=== PATIENT | male | born 1960 | race Caucasian/White ===

== ENCOUNTER 2019-08-01 | Emergency (ER) | payer BC | END 2019-08-01 22:29 | disposition home or self-care (01) | CPT/HCPCS: 70450; 72125; 72128; 72131; 99283 ==

== ENCOUNTER 2023-01-30 06:59 | Day surgery (SDC) | payer OTHER ==
--- NOTE | 2023-01-27 11:55 | RAD REPORT ---
EXAM DESCRIPTION: RAD - Chest Pa And Lat (2 Views) - 01/27/2023 11:34 am CLINICAL HISTORY: PREPROCEDURE EXAM. Hypertension COMPARISON: Chest Pa And Lat (2 Views) dated 07/21/2021; CHEST PA AND LAT 2 VIEW dated 01/13/2009 TECHNIQUE: PA and lateral views of the chest were obtained. FINDINGS: The lungs are clear. Mild hyperinflation, stable. Heart size is normal and central vascula ture is within normal limits. No pleural effusion or pneumothorax seen. No acute bony finding noted. IMPRESSION: No acute cardiopulmonary process.
--- NOTE | 2023-01-27 12:20 | EKG ---
Test Date: 2023-01-27 Test Time: 11:18:36 Child Care Director: MIKKI MEASUREMENT RESULTS: Intervals: Rate: 64 IA: 162 QRSD: 94 QT: 448 QTc: 462 Ada: P: 63 IA: 162 QRS: -36 T: 25 INTERPRETIVE STATEMENTS: Normal sinus rhythm Left axis deviation Abnormal ECG Compared to ECG 01/13/2009 14:32:09 Left-axis deviation now present Electronically Signed On 01-27-23 12:19:30 CDT by Philip Bower
[2023-01-27 12:33] LABS: Absolute Lymphocytes (CBC) 1.1 K/uL (0.7-4.9); Hematocrit 34.7 % (39.6-49.0); Lymphocytes % 15.9 % (15.3-44.8); MCV 87.3 fL (80-100); MPV 8.8 fL (7.6-11.3); Platelets 213 thou/uL (152-406); RBC Red Blood Cell Count 3.97 M/uL (4.33-5.43)
[2023-01-27 12:47] LABS: Potassium 2.9 mEq/L (3.5-5.1)
[2023-01-30] MEDS ORDERED: NA CHLORIDE 0.9% 1,000 ML ONE (07:33)
[2023-01-30] MEDS ORDERED: ALBUTEROL 2.5 MG/3 ML NEB SOL ONE ×2 (07:46→10:12)
[2023-01-30] MEDS: CEFAZOLIN SODIUM 1 GM/VIAL ONE ×2 (08:08→08:25)
[2023-01-30] MEDS ORDERED: FENTANYL CITR 100 MCG/2 ML ONE (08:18)
[2023-01-30] MEDS ORDERED: MIDAZOLAM HCL 2 MG/2 ML INJ ONE (08:19)
[2023-01-30] MEDS ORDERED: propofoL 200 MG/20 ML VIAL IV ONE (08:19)
[2023-01-30] MEDS ORDERED: LIDOCAINE 2% MPF 5 ML VIAL ONE (08:19)
[2023-01-30] MEDS ORDERED: ONDANSETRON 4 MG/2 ML VIAL ONE (08:24)
[2023-01-30] MEDS ORDERED: SUCCINYLCHOLINE 20 MG/ML (10 ML) IV ONE (08:44)
[2023-01-30] MEDS ORDERED: SILVER SULFADIAZINE 1% 25 GM TOP ONE (09:25)
[2023-01-30] MEDS ORDERED: HYDROMORPHONE HCL 1 MG/ML INJ ONE (10:18)
[2023-01-30 10:30] VITALS: O2SAT 93
--- NOTE | 2023-01-30 10:34 | P.BOP ---
Preoperative diagnosis: Large perineal ulcerated masses [id number] Postoperative diagnosis: same Primary procedure: Wide excision large ulcerated skin masses Estimated blood loss: <10cc Specimen: masses Anesthesia: General Complications: None Drain(s): Other (silvadene with gauze) Transferred to: Recovery Room Condition: Good
[2023-01-30 11:20] VITALS: BP 149/78; TEMP 97.6
--- NOTE | 2023-02-01 19:35 | DS ---
Date of Discharge: 01/30/2023 Diagnosis: Large perineal ulcerated masses. Procedure: Wide excision of large ulcerated skin masses. Disposition: Home. Plan: [facility] for [facility] and dressing guera CHENEY Voice ID: [id number] Report ID: [id number]
--- NOTE | 2023-02-01 19:51 | OP ---
Surgeon: Colyb Garrison MD Preoperative Diagnosis: Large perineal ulcerated mass altogether is about 25 x 20 cm. Postoperative Diagnosis: Large perineal ulcerated mass altogether is about 25 x 20 cm. Procedure: Wide excision of large ulcerated skin mass about 25 x 20 cm total fungating mass. Estimated Blood Loss: Less than 10 mL. Specimen: Fungating mass. Anesthesia: General plus local. Findings: The patient had this fungating lesion, ulcerated, large, multiple areas including perineum , both thighs, even part of the scrotum. When you put all this together and satellite lesions ____ area is about 25 x 20 cm. Complications: None. Packing: Gauze with Silvadene. The area was left to close by secondary intent. Indication: This is a case of a 62-year-old patient with a large mass on the perineal area, involved part of the scrotal skin and the patient wants that excised. This is draining, discomfor t, may be a large gigantic condyloma area. He understands the risks of excision, which include, but not limited to, infection, bleeding, damage to adjacent structures, anesthesia complications, [place], and even . Proper precaution was done in the OR in case this is a condyloma. The patient was prep ped. Description Of Procedure: The patient was brought to the operating room, placed in supine position. Anesthesia was done without complication. The patient was placed in lithotomy position with proper protection. Proper precautions were also done by the OR in case once again if it is a virus. Wide e xcision of this area was done. There are large bases, different locations, multiple satellites. We were trying to remove the bulkiness of this. There were some small areas he might have to do in anot her time due to the large amount of the wounds open. All of them were excised all the way down to the subcutaneous tissue. The area was irrigated. These are too large to be closed, so we c overed the area with Silvadene and gauze in that region. The patient tolerated the procedure well. The patient was sent to Recovery in stable condition. [place] Voice ID: [id number] Report ID: [id number]
== END 2023-01-30 11:15 | disposition home or self-care (01) ==
LOC: OR 06:59
PROVIDERS: ATTEND Surgery
PROC: 0HBAXZZ Excision of Inguinal Skin, External Approach (ICD-10-PCS; principal; 2023-01-30 08:30)
DX: A63.0 Anogenital (venereal) warts (principal)
CPT/HCPCS: 93005; 85025; 80048; 36415; 82947 ×2; 88305; 71046; 11426; J2704; J7613 ×2; J2001; J2250; J3010; J1170; J2405; J7030; J0690

== ENCOUNTER 2023-02-06 00:06 | Emergency (ER) | payer OTHER ==
--- OUTSIDE RECORDS SUMMARY | 2023-02-06 00:11 | XMS REPORT | Continuity of Care Document ---
:1960 Author Organization [facility] t Address [address] [facility] [place] [address] Care Team Providers Name Role Phone Sterling Harper Primary Care Physician Tico Viera Attending Clinician Unavailable , [facility] Bed Attending Clinician Unavailable Lianna Moy MD Attending Clinician LIANNA MOY Attending Clinician Unavailable LIANNA MOY Attending Clinician Unavailable Doctor Unassigned, [place] Attending Clinician Unavailable Juan Harper Attending Clinician Unavailable Russ Cool Attending Clinician Unavailable TICO VIERA Attending Clinician Unavailable LAXMI CLINE Attending Clinician Unavailable Jong Mac RN Attending Clinician Unavailable SMOOTH PARKS Attending Clinician Unavailable Erma Cruz Attending Clinician Smooth Parks MD Attending Clinician Radiology Attending Clinician Unavailable Tico Viera Admitting Clinician Unavailable Russ Cool Admitting Clinician Unavailable TICO VIERA Admitting Clinician Unavailable Jv Garcia Admitting Clinician Unavailable LAXMI CLINE Admitting Clinician Unavailable SMOOTH PARKS Admitting Clinician Unavailable Smooth Parks MD Admitting Clinician Payers Payer Name Policy Type Policy Number Effective Date Expiration Date S hollie CRESPO FROM [id number] 2019 [facility] 00:00:00 Problems Condition Condition Condition Status Onset Resolution Last Treating Co mments Source Name Details Category Date Date Treatment Clinician Date Coronary Coronary Disease Active Unive rs artery artery 09-22 ity of disease disease 00:00: [place] involving involving 00 Medi simba [place] Branch coronary coronary artery of artery of [place] heart with heart with angina angina pectoris pectoris Acute on Acute on Disease Active Unive rs chronic chronic 09-22 ity of diastolic diastolic 00:00: [place] congestive congestive 00 Me dical heart heart Branch failure failure Essential Essential Disease Active Uni vers hypertensi hypertensi 09-22 it y of on on 00:00: [place] 00 Medical Branch Other Other Disease Active Univers hyperlipid hyperlipid 09-22 it y of emia emia 00:00: [place] [facility] Type 2 Type 2 Disease Active Univers diabetes diabetes 09-22 ity of mellitus mellitus 00:00: [place] without without 00 Medical complicati complicati Br anch on, on, without without long-term long-term current current use of use of insulin insulin DUSTIN DUSTIN Disease Active Univers (obstructi (obstructi 09-22 it y of ve sleep ve sleep 00:00: [place] apnea) apnea) 00 Medical Branch Acute Acute Disease Active Univers kidney kidney 3 ity of injury injury 00:00: [place] (CLAIRE) with (CLAIRE) with 00 Me dical acute acute Branch tubular tubular necrosis necrosis (ATN) (ATN) Hyperglyce Hyperglyce Disease Active U nivers isadora isadora 2-29 ity of 00:00: [place] [facility] Chest pain Chest pain Disease Active 2018- U nivers 9-10 ity of 00:00: [place] 00 Medical Branch Other Other Disease Active 2016-04 Univers chest pain chest pain 0-08 it y of 00:00: [place] 00 Medical Branch Unstable Unstable Disease Active 2016-04 Unive rs angina angina 0-07 ity of 00:00: [place] [facility] Obesity Obesity Disease Active 2016-04 Univers (BMI (BMI 0-07 ity of 30-39.9) 30-39.9) 00:00: [place] [facility] Knee pain, Knee pain, Disease Active U nivers left left 5-10 ity of 00:00: [place] [facility] Knee pain, Knee pain, Disease Active U nivers left left 5-10 ity of 00:00: [address] Allergies, Adverse Reactions, Alerts Allergy Allergy Status Severity Reaction(s) Onset Inactive Treating Comm ents Source Name Type Date Date Clinician No Known DA Active U [facility] Allergie 9-16 [place] 00:00: [address] No Known DA Active U 2016-04 [facility] Allergie 0-14 [place] 00:00: [address] NO KNOWN Drug Active Univers ALLERGIE Class ity of S [facility] Social History Social Habit Start Date Stop Date Quantity Comments Source History of tobacco Cigarette Smoker University of use [facility] Exposure to 2022-08-13 2022-08-23 Not sure [facility] SARS-CoV-2 (event) 00:00:00 02:23:00 [facility] Alcohol intake 2019-06-22 2019-06-22 Current University of 00:00:00 00:00:00 non-drinker of [facility] alcohol Branch (finding) Tobacco use and 2017-01-28 2017-01-28 Smokeless Universit y of exposure 00:00:00 00:00:00 tobacco non-user [facility] Branch Cigarettes smoked 2017-01-28 2017-01-28 Univers ity of current (pack per 00:00:00 00:00:00 [place] ) - Reported Branch Cigarette 2017-01-28 2017-01-28 University of pack-years 00:00:00 00:00:00 [facility] Alcohol Comment 2009-04-07 2009-04-07 quit drinking Univer sity of 00:00:00 00:00:00 [facility] Sex Ass[birth year] At [birth year] Universit y of 00:00:00 00:00:00 [facility] Smoking Status Start Date Stop Date Source Smokes tobacco daily 2017-01-28 00:00:00 [facility] ity of [facility] Medications Ordered Filled Start Stop Current Ordering Indication Dosage Frequency Signature Comments Components Source Medication Medication Date Date Medication? Clinician (SIG) Name Name aspirin 81 Yes [id number] 81mg Take 1 U nivers mg chewable 6-02 tablet by ity of tablet 00:00: mouth [place] 00 daily. Medical Branch aspirin 81 2020-0 Yes [id number] 81mg Take 1 U nivers mg chewable 6-02 tablet by ity of tablet 00:00: mouth [place] 00 daily. Medical Branch aspirin 81 2020-0 Yes [id number] 81mg Take 1 U nivers mg chewable 6-02 tablet by ity of tablet 00:00: mouth [place] 00 daily. Medical Branch tamsulosin 2020-0 Yes .4mg Take 0.4 Uni vers 0.4 mg 24 6-01 mg by ity of hr capsule 14:28: mouth [place] 29 daily. Medical Branch metFORMIN 2020-0 Yes 500mg Take 500 Uni vers 500 mg 6-01 mg by ity of tablet 14:28: mouth 2 [place] 29 (two) Medical times Branch daily with meals. insulin 2020-0 Yes inject Univers aspart 6-01 under the ity of prot/insuln 14:28: skin 2 [place] asp 29 (two) Medical (NOVOLOG times Branch MIX daily with 70-30FLEXPE meals. N U-100 SC) tamsulosin 2020-0 Yes .4mg Take 0.4 Uni vers 0.4 mg 24 6-01 mg by ity of hr capsule 14:28: mouth [place] 29 daily. Medical Branch metFORMIN 2020-0 Yes 500mg Take 500 Uni vers 500 mg 6-01 mg by ity of tablet 14:28: mouth 2 [place] 29 (two) Medical times Branch daily with meals. insulin 2020-0 Yes inject Univers aspart 6-01 under the ity of prot/insuln 14:28: skin 2 [place] asp 29 (two) Medical (NOVOLOG times Branch MIX daily with 70-30FLEXPE meals. N U-100 SC) tamsulosin 2020-0 Yes .4mg Take 0.4 Uni vers 0.4 mg 24 6-01 mg by ity of hr capsule 14:28: mouth [place] 29 daily. Medical Branch metFORMIN 2020-0 Yes 500mg Take 500 Uni vers 500 mg 6-01 mg by ity of tablet 14:28: mouth 2 [place] 29 (two) Medical times Branch daily with meals. insulin 2020-0 Yes inject Univers aspart 6-01 under the ity of prot/insuln 14:28: skin 2 [place] asp 29 (two) Medical (NOVOLOG times Branch MIX daily with 70-30FLEXPE meals. N U-100 SC) benazepril- 2020-0 Yes [id number] 1{tbl} Take 1 Univers hydrochlort 6-01 tablet by ity of hiazide 00:00: mouth [place] 20-25 mg 00 daily. Medical per tablet Branch carvediloL 2020-0 Yes [id number] 12.5mg Take 1 Univers 12.5 mg 6-01 tablet by ity of tablet 00:00: mouth 2 [place] 00 (two) Medical times Branch daily. isosorbide 2020-0 Yes [id number] 60mg Take 1 U nivers mononitrate 6-01 tablet by ity of 60 mg 24 hr 00:00: mouth [place] tablet 00 daily. Medical Branch benazepril- 2020-0 Yes [id number] 1{tbl} Take 1 Univers hydrochlort 6-01 tablet by ity of hiazide 00:00: mouth [place] 20-25 mg 00 daily. Medical per tablet Branch carvediloL 2020-0 Yes [id number] 12.5mg Take 1 Univers 12.5 mg 6-01 tablet by ity of tablet 00:00: mouth 2 [place] 00 (two) Medical times Branch daily. isosorbide 2020-0 Yes [id number] 60mg Take 1 U nivers mononitrate 6-01 tablet by ity of 60 mg 24 hr 00:00: mouth [place] tablet 00 daily. Medical Branch benazepril- 2020-0 Yes [id number] 1{tbl} Take 1 Univers hydrochlort 6-01 tablet by ity of hiazide 00:00: mouth [place] 20-25 mg 00 daily. Medical per tablet Branch carvediloL 2020-0 Yes [id number] 12.5mg Take 1 Univers 12.5 mg 6-01 tablet by ity of tablet 00:00: mouth 2 [place] 00 (two) Medical times Branch daily. isosorbide 2020-0 Yes [id number] 60mg Take 1 U nivers mononitrate 6-01 tablet by ity of 60 mg 24 hr 00:00: mouth [place] tablet 00 daily. Medical Branch tamsulosin 2020-0 Yes .4mg Take 0.4 Uni vers 0.4 mg 24 3-02 mg by ity of hr capsule 18:15: mouth [place] 44 daily. Medical Branch tamsulosin 2020-0 Yes .4mg Take 0.4 Uni vers 0.4 mg 24 3-02 mg by ity of hr capsule 18:15: mouth [place] 44 daily. Medical Branch metFORMIN 2020-0 Yes 500mg 500 mg, Univ ers (GLUCOPHAGE 3- Oral, BID ity of ) tablet 14:00: MEALS, [place] 500 mg 00 First dose Medical on Mon Branch 06/24/19 at 0800, Until Discontinu ed, Routine glyBURIDE 5 2020-0 2020- No [id number] 5mg Take 1 Univers mg tablet 06-23- tablet by ity of 00:00: 04:59 mouth 2 [place] 00 :00 (two) Medical times Branch daily with meals for 30 days. metFORMIN 2020-0 2020- No [id number] 500mg Take 1 Univers 500 mg 06-23- tablet by ity of tablet 00:00: 04:59 mouth 2 [place] 00 :00 (two) Medical times [place] daily with meals for 30 days. glyBURIDE 5 2020-0 2020- No [id number] 5mg Take 1 Univers mg tablet 06-23- tablet by ity of 00:00: 04:59 mouth 2 [place] 00 :00 (two) Medical times [place] daily with meals for 30 days. metFORMIN 2020-0 2020- No [id number] 500mg Take 1 Univers 500 mg 06-23- tablet by ity of tablet 00:00: 04:59 mouth 2 [place] 00 :00 (two) Medical times [place] daily with meals for 30 days. NaCl 0.9% 2020-0 Yes 1000mL at 75 Unive rs (NS) IV 3-01 mL/hr, IV ity of infusion 23:45: Infusion, [place] 1,000 mL 00 CONTINUOUS Medic al , Starting Branch [place] 06/23/19 at 1745, Until Discontinu ed, Routine clopidogreL 2020-0 Yes 75mg 75 mg, Univ ers (PLAVIX) 3- Oral, ity of tablet 75 15:00: DAILY, [place] mg 00 First dose Medical on [facility] 06/23/19 at 0900, Until Discontinu ed, Routine glyBURIDE 2020-0 Yes 5mg 5 mg, Univers (DIABETA) 3- Oral, BID ity o f tablet 5 mg 14:30: MEALS, [place] 00 First dose Medical on [facility] 06/23/19 at 0830, Until Discontinu ed, Routine gabapentin 2020-0 Yes 600mg 600 mg, Uni vers (NEURONTIN) 06-22 Oral, TID, it y of tablet 600 14:00: First dose [place] mg 00 on [facility] 06/23/19 at Branch 0800, Until Discontinu ed, Routine carvediloL 2020-0 Yes 6.25mg 6.25 mg, U stephanie (COREG) 06-22 Oral, BID, ity of tablet 6.25 14:00: First dose [place] mg 00 on [facility] 06/23/19 at Branch 0800, Until Discontinu ed, Routine cetirizine 2020-0 2020- No 5mg 5 mg, Unive rs (ZYRTEC) 06-22 03 Oral, ity of tablet 5 mg 06:15: 05:20 ONCE, 1 [place] 00 :00 dose, [facility] 06/23/19 at Branch 0015, Routine fluticasone 2020-0 Yes 1{puff} 1 Puff, [facility] propion-lamar 06-22 Inhalation it y of meterol 05:15: , Q12H, [place] (ADVAIR) 00 First dose Medic al 250-50 on [facility] mcg/dose 06/22/19 at inhalation 2315, disk 1 Puff Until Discontinu ed, Routine
Use approved by (Faculty and pager): ADC PROVIDER tamsulosin 2020-0 Yes .4mg 0.4 mg, Univ ers (FLOMAX) 06-22 Oral, ity of capsule 0.4 05:15: DAILY, [place] mg 00 First dose Medical on [facility] 06/22/19 at 2315, Until Discontinu ed, Routine pravastatin 2020-0 Yes 80mg 80 mg, Univ ers (PRAVACHOL) 06-22 Oral, QHS, it y of tablet 80 05:15: First dose [place] mg 00 on [facility] 06/22/19 at Branch 2315, Until Discontinu ed, Routine nitroglycer 2020-0 Yes .4mg 0.4 mg, Uni vers in 06-22 Sublingual ity of (NITROSTAT) 04:59: , Q5MIN [place] sublingual 35 PRN, Medical tablet 0.4 Starting Branc h mg [facility] 06/22/19 at 2259, Until Discontinu ed, Routine, Chest pain ipratropium 2020-0 Yes 3mL [facility] Inhalation ity of (DUONEB) 04:52: , QIDPRN, [place] 0.5 mg-3 22 Starting Medical mg(2.5 mg Sat Branch base)/3 mL 06/22/19 at nebulizer 2252, solution 3 Until mL Discontinu ed, Routine, Wheezing, Shortness of Breath nicotine 2020-0 Yes 1{patch 1 Patch, Un mason (NICODERM) 06-22 } Topical, ity o f 21 mg/24 hr 03:45: Administer [place] patch 1 00 over 24 Medical Patch Hours, Branch Q24H, First dose on 06/22/19 at 2145, Until Discontinu ed, Routine insulin 2019-0 2020- No 10U 10 Units, [facility] ers regular 06-22 Subcutaneo ity o f human 00:00: 23:37 us, ONCE, [place] (HUMULIN R) 00 :00 1 dose, Medic al injection Sat Branch 10 Units 06/22/19 at 1800, Routine Sliding 2019-0 Yes Subcutaneo [facility] ers Scale us, TID ity of Insulin - 23:00: MEALS+HS, [place] Aspart 00 First dose Medical (NOVOLOG) + on [facility] Branch [facility] 06/22/19 at Testing 1700, Until Discontinu ed, Routine NaCl 0.9% 2020-0 2020- No 1000mL at 125 Uni vers (NS) IV 03-01 mL/hr, IV ity of infusion 22:45: 23:33 Infusion, [place] 1,000 mL 00 :30 CONTINUOUS Medic al , Starting Branch 06/22/19 at 1645, Until 06/23/19 at 1733, Routine ondansetron 2020-0 Yes 4mg 4 mg, Slow Univers (ZOFRAN IV Push, ity of (PF)) 22:42: Q6HPRN, [place] injection 4 59 Starting Medi simba mg Sat Branch 06/22/19 at 1642, Until Discontinu ed, Routine, Nausea and Vomiting (N/V) acetaminoph 2020-0 Yes 650mg 650 mg, Un mason en Oral, ity of (TYLENOL) 22:42: Q6HPRN, [place] tablet 650 54 Starting Medic al mg Sat Branch 06/22/19 at 1642, Until Discontinu ed, Routine, Pain (scale 1-3) insulin 2019-0 2020- No 10U 10 Units, Univ ers regular Slow IV ity of human 21:00: 20:13 Push, [place] (HUMULIN R) 00 :00 ONCE, 1 Medic al injection dose, Sat Branc h 10 Units 06/22/19 at 1500, Routine NaCl 0.9% 0 2020- No 1000mL at 999 Uni vers (NS) bolus mL/hr, ity of infusion 20:15: 19:12 1,000 mL, [place] 1,000 mL 00 :00 IV Medical Infusion, Branch ONCE, 1 dose, 06/22/19 at 1415, STAT NaCl 0.9% 2019-0 2020- No 1000mL at 999 Uni vers (NS) bolus mL/hr, ity of infusion 20:00: 19:38 1,000 mL, [place] 1,000 mL 00 :00 IV Medical Infusion, Branch ONCE, 1 dose, 06/22/19 at 1400, STAT tamsulosin Yes .4mg Take 0.4 Uni vers 0.4 mg 24 9-12 mg by ity of hr capsule 00:36: mouth [place] 00 daily. Medical Branch tamsulosin 2017-0 Yes .4mg Take 0.4 Uni vers 0.4 mg 24 9-12 mg by ity of hr capsule 00:36: mouth [place] 00 daily. Medical Branch tamsulosin 2017-0 Yes .4mg Take 0.4 Uni vers 0.4 mg 24 9-12 mg by ity of hr capsule 00:36: mouth [place] 00 daily. Medical Branch nitroglycer 2016-[address] 1 Uni vers in 0.4 mg 0-08 tablet ity of sublingual 00:00: under the [place] tablet 00 tongue Medical every 5 Branch (five) minutes as needed for Chest pain. albuterol 2016-04 Yes 2{puff} Inhale 2 U nivers (VENTOLIN 0-08 Puffs ity of HFA) 90 00:00: every 6 [place] mcg/actuati 00 (six) Medical on inhaler hours as Branc h needed for Wheezing or Shortness of Breath. fluticasone 2016-04 Yes 1{puff} Inhale 1 Univers -salmeterol 0-08 Puff every it y of 250-50 00:00: 12 [place] mcg/dose 00 (twelve) Medical inhalation hours. Branch disk nitroglycer 2016-[address] 1 Uni vers in 0.4 mg 0-08 tablet ity of sublingual 00:00: under the [place] tablet 00 tongue Medical every 5 Branch (five) minutes as needed for Chest pain. nitroglycer 2016-[address] 1 Uni vers in 0.4 mg 0-08 tablet ity of sublingual 00:00: under the [place] tablet 00 tongue Medical every 5 Branch (five) minutes as needed for Chest pain. albuterol 2016-04 Yes 2{puff} Inhale 2 U nivers (VENTOLIN 0-08 Puffs ity of HFA) 90 00:00: every 6 [place] mcg/actuati 00 (six) Medical on inhaler hours as Branc h needed for Wheezing or Shortness of Breath. fluticasone 2016-04 Yes 1{puff} Inhale 1 Univers -salmeterol 0-08 Puff every it y of 250-50 00:00: 12 [place] mcg/dose 00 (twelve) Medical inhalation hours. Branch disk albuterol 2016-04 Yes 2{puff} Inhale 2 U nivers (VENTOLIN 0-08 Puffs ity of HFA) 90 00:00: every 6 [place] mcg/actuati 00 (six) Medical on inhaler hours as Branc h needed for Wheezing or Shortness of Breath. fluticasone 2016-04 Yes 1{puff} Inhale 1 Univers -salmeterol 0-08 Puff every it y of 250-50 00:00: 12 [place] mcg/dose 00 (twelve) Medical inhalation hours. Branch disk nitroglycer 2016-[address] 1 Uni vers in 0.4 mg 0-08 tablet ity of sublingual 00:00: under the [place] tablet 00 tongue Medical every 5 Branch (five) minutes as needed for Chest pain. albuterol 2016-04 Yes 2{puff} Inhale 2 U nivers (VENTOLIN 0-08 Puffs ity of HFA) 90 00:00: every 6 [place] mcg/actuati 00 (six) Medical on inhaler hours as Branc h needed for Wheezing or Shortness of Breath. fluticasone 2016-04 Yes 1{puff} Inhale 1 Univers -salmeterol 0-08 Puff every it y of 250-50 00:00: 12 [place] mcg/dose 00 (twelve) Medical inhalation hours. Branch disk nitroglycer 2016-[address] 1 Uni vers in 0.4 mg 0-08 tablet ity of sublingual 00:00: under the [place] tablet 00 tongue Medical every 5 Branch (five) minutes as needed for Chest pain. albuterol 2016-04 Yes 2{puff} Inhale 2 U nivers (VENTOLIN 0-08 Puffs ity of HFA) 90 00:00: every 6 [place] mcg/actuati 00 (six) Medical on inhaler hours as Branc h needed for Wheezing or Shortness of Breath. fluticasone 2016-04 Yes 1{puff} Inhale 1 Univers -salmeterol 0-08 Puff every it y of 250-50 00:00: 12 [place] mcg/dose 00 (twelve) Medical inhalation hours. Branch disk nitroglycer 2016-[address] 1 Uni vers in 0.4 mg 0-08 tablet ity of sublingual 00:00: under the [place] tablet 00 tongue Medical every 5 Branch (five) minutes as needed for Chest pain. albuterol 2016-04 Yes 2{puff} Inhale 2 U nivers (VENTOLIN 0-08 Puffs ity of HFA) 90 00:00: every 6 [place] mcg/actuati 00 (six) Medical on inhaler hours as Branc h needed for Wheezing or Shortness of Breath. fluticasone 2016-04 Yes 1{puff} Inhale 1 Univers -salmeterol 0-08 Puff every it y of 250-50 00:00: 12 [place] mcg/dose 00 (twelve) Medical inhalation hours. Branch disk nitroglycer 2016-[address] 1 Uni vers in 0.4 mg 0-08 tablet ity of sublingual 00:00: under the [place] tablet 00 tongue Medical every 5 Branch (five) minutes as needed for Chest pain. albuterol 2016-04 Yes 2{puff} Inhale 2 U nivers (VENTOLIN 0-08 Puffs ity of HFA) 90 00:00: every 6 [place] mcg/actuati 00 (six) Medical on inhaler hours as Branc h needed for Wheezing or Shortness of Breath. fluticasone 2016-04 Yes 1{puff} Inhale 1 Univers -salmeterol 0-08 Puff every it y of 250-50 00:00: 12 [place] mcg/dose 00 (twelve) Medical inhalation hours. Branch disk nitroglycer 2016-[address] 1 Uni vers in 0.4 mg 0-08 tablet ity of sublingual 00:00: under the [place] tablet 00 tongue Medical every 5 Branch (five) minutes as needed for Chest pain. albuterol 2016-04 Yes 2{puff} Inhale 2 U nivers (VENTOLIN 0-08 Puffs ity of HFA) 90 00:00: every 6 [place] mcg/actuati 00 (six) Medical on inhaler hours as Branc h needed for Wheezing or Shortness of Breath. fluticasone 2016-04 Yes 1{puff} Inhale 1 Univers -salmeterol 0-08 Puff every it y of 250-50 00:00: 12 [place] mcg/dose 00 (twelve) Medical inhalation hours. Branch disk diclofenac 2017-0 Yes 75mg Take 1 Unive rs 75 mg EC 5-12 tablet by ity of tablet 00:00: mouth 2 [place] (two) Medical times Branch daily with meals. diclofenac 2017-0 Yes 75mg Take 1 Unive rs 75 mg EC 5-12 tablet by ity of tablet 00:00: mouth 2 [place] (two) Medical times Branch daily with meals. diclofenac 2017-0 Yes 75mg Take 1 Unive rs 75 mg EC 5-12 tablet by ity of tablet 00:00: mouth 2 [place] (two) Medical times Branch daily with meals. diclofenac 2017-0 Yes 75mg Take 1 Unive rs 75 mg EC 5-12 tablet by ity of tablet 00:00: mouth 2 [place] (two) Medical times Branch daily with meals. diclofenac 2017-0 Yes 75mg Take 1 Unive rs 75 mg EC 5-12 tablet by ity of tablet 00:00: mouth 2 [place] (two) Medical times Branch daily with meals. clopidogrel 2017-0 Yes 75mg Take 75 mg Univers 75 mg 2-23 by mouth ity of tablet 00:00: daily. [place] [facility] clopidogrel 2017-0 Yes 75mg Take 75 mg Univers 75 mg 2-23 by mouth ity of tablet 00:00: daily. [place] [facility] glyBURIDE 5 2017-0 Yes 5mg 5 mg daily Univers mg tablet 2-23 with ity of 00:00: breakfast. [place] [facility] clopidogrel 2017-0 Yes 75mg Take 75 mg Univers 75 mg 2-23 by mouth ity of tablet 00:00: daily. [place] [facility] clopidogrel 2017-0 Yes 75mg Take 75 mg Univers 75 mg 2-23 by mouth ity of tablet 00:00: daily. [place] [facility] clopidogrel 2017-0 Yes 75mg Take 75 mg Univers 75 mg 2-23 by mouth ity of tablet 00:00: daily. [place] [facility] clopidogrel 2017-0 Yes 75mg Take 75 mg Univers 75 mg 2-23 by mouth ity of tablet 00:00: daily. [place] [facility] glyBURIDE 5 2017-0 Yes 5mg 5 mg daily Univers mg tablet 2-23 with ity of 00:00: breakfast. [place] [facility] clopidogrel 2017-0 Yes 75mg Take 75 mg Univers 75 mg 2-23 by mouth ity of tablet 00:00: daily. [place] [facility] glyBURIDE 5 2017-0 Yes 5mg 5 mg daily Univers mg tablet 2-23 with ity of 00:00: breakfast. [place] [facility] clopidogrel 2017-0 Yes 75mg Take 75 mg Univers 75 mg 2-23 by mouth ity of tablet 00:00: daily. [place] [facility] glyBURIDE 5 2017-0 2020- No 5mg 5 mg daily Univers mg tablet 2-06-23 with ity of 00:00: 00:00 breakfast. [place] 00 :00 [facility] gabapentin 2017-0 Yes 600mg Take 600 Un mason 600 mg 2-16 mg by ity of tablet 00:00: mouth 3 [place] (three) Medical times Branch daily. gabapentin 2017-0 Yes 600mg Take 600 Un mason 600 mg 2-16 mg by ity of tablet 00:00: mouth 3 [place] (three) Medical times Branch daily. gabapentin 2017-0 Yes 600mg Take 600 Un mason 600 mg 2-16 mg by ity of tablet 00:00: mouth 2 [place] (two) Medical times Branch daily. gabapentin 2017-0 Yes 600mg Take 600 Un mason 600 mg 2-16 mg by ity of tablet 00:00: mouth 2 (two) Medical times Branch daily. gabapentin 2017-0 Yes 600mg Take 600 Un [place] 600 mg 2-16 mg by ity of tablet 00:00: mouth 2 (two) Medical times Branch daily. gabapentin 2017-0 Yes 600mg Take 600 Un [place] 600 mg 2-16 mg by ity of tablet 00:00: mouth 3 (three) Medical times Branch daily. gabapentin 2017-0 Yes 600mg Take 600 Un [place] 600 mg 2-16 mg by ity of tablet 00:00: mouth 3 (three) Medical times Branch daily. gabapentin 2017-0 Yes 600mg Take 600 Un [place] 600 mg 2-16 mg by ity of tablet 00:00: mouth 3 (three) Medical times Branch daily. COREG 6.25 2009-0 Yes 1 tab PO Uni vers MG ORAL TAB 5-18 BID ity of 00:00: [place] [facility] METFORMIN 2009-0 Yes 1 tab PO Univ ers 500 MG ORAL 5-18 BID ity of TAB 00:00: [place] [facility] BENAZEPRIL 2009-0 Yes 1 tab PO Uni vers 20 MG ORAL 5-18 daily ity of TAB 00:00: [place] [facility] PRAVASTATIN 2009-0 Yes take 2 Univ ers 40 MG ORAL 5-18 tabs qd ity of TAB 00:00: Medical Branch COREG 6.25 2009-0 Yes 1 tab PO Uni vers MG ORAL TAB 5-18 BID ity of 00:00: [place] [facility] BENAZEPRIL 2009-0 Yes 1 tab PO Uni vers 20 MG ORAL 5-18 daily ity of TAB 00:00: Medical Branch PRAVASTATIN 2009-0 Yes take 2 Univ ers 40 MG ORAL 5-18 tabs qd ity of TAB 00:00: Medical Branch PRAVASTATIN 2009-0 Yes take 2 Univ ers 40 MG ORAL 5-18 tabs qd ity of TAB 00:00: Medical Branch PRAVASTATIN 2009-0 Yes take 2 Univ ers 40 MG ORAL 5-18 tabs qd ity of TAB 00:00: Medical Branch PRAVASTATIN 2009-0 Yes take 2 Univ ers 40 MG ORAL 5-18 tabs qd ity of TAB 00:00: Medical Branch COREG 6.25 2009-0 Yes 1 tab PO Uni vers MG ORAL TAB 5-18 BID ity of 00:00: [place] 00 Medical Branch METFORMIN Yes 1 tab PO Univ ers 500 MG ORAL 5-18 BID ity of TAB 00:00: 00 Medical Branch BENAZEPRIL Yes 1 tab PO Uni vers 20 MG ORAL 5-18 daily ity of TAB 00:00: Medical Branch PRAVASTATIN Yes take 2 Univ ers 40 MG ORAL 5-18 tabs qd ity of TAB 00:00: 00 Medical Branch COREG 6.25 Yes 1 tab PO Uni vers MG ORAL TAB 5-18 BID ity of 00:00: [place] 00 Medical Branch METFORMIN Yes 1 tab PO Univ ers 500 MG ORAL 5-18 BID ity of TAB 00:00: 00 Medical Branch BENAZEPRIL Yes 1 tab PO Uni vers 20 MG ORAL 5-18 daily ity of TAB 00:00: Medical Branch PRAVASTATIN Yes take 2 Univ ers 40 MG ORAL 5-18 tabs qd ity of TAB 00:00: Medical Branch COREG 6.25 Yes 1 tab PO Uni vers MG ORAL TAB 5-18 BID ity of 00:00: Medical Branch BENAZEPRIL Yes 1 tab PO Uni vers 20 MG ORAL 5-18 daily ity of TAB 00:00: Medical Branch PRAVASTATIN Yes take 2 Univ ers 40 MG ORAL 5-18 tabs qd ity of TAB 00:00: Medical Branch METFORMIN 0 2020- No 1 tab PO Uni vers 500 MG ORAL 5-18 - BID ity of TAB 00:00: 00:00 [place] 00 :00 Medical Branch Vital Signs Vital Name Observation Time Observation Value Comments Source Systolic blood 2019-06-24 17:00:00 108 mm[Hg] Univer sity of pressure [facility] Diastolic blood 2019-06-24 17:00:00 80 mm[Hg] Unive rsity of pressure [facility] Heart rate 2019-06-24 17:00:00 67 /min [facility] Body temperature 2019-06-24 17:00:00 36.17 Michela Univ ersity [facility] Respiratory rate 2019-06-24 17:00:00 16 /min [facility] ersity [facility] Oxygen saturation in 2019-06-24 17:00:00 99 /min [facility] blood by [facility] Pulse oximetry Branch Body weight 2019-06-22 20:45:00 127.461 kg [facility] BMI 2019-06-22 20:45:00 38.11 kg/m2 [facility] Systolic blood 2019-06-24 17:00:00 108 mm[Hg] [facility] Diastolic blood 2019-06-24 17:00:00 80 mm[facility]Hg] [facility] 2019-06-24 17:00:00 67 /min [facility] Body temperature 2019-06-24 17:00:00 36.17 Michela [facility] rate 2019-06-24 17:00:00 16 /min [facility] Oxygen saturation in 2019-06-24 17:00:00 99 /min [facility] Arterial blood by [facility] Pulse oximetry Branch Body weight 2019-06-22 20:45:00 127.461 kg [facility] BMI 2019-06-22 20:45:00 38.11 kg/m2 [facility] Procedures Procedure Date / Time Performing Clinician Source Performed SLEEP STUDY DATA REPORT 2022-08-22 05:01:00 Doctor Unassigned, N o [facility] EXTERNAL PROVIDER 2022-06-22 06:01:00 Doctor Unassigned, No Univ [facility] RECORDS [facility] POCT GLUCOSE 2019-06-24 13:37:00 Charly [facility] (AUTOMATED) [facility] BASIC METABOLIC PANEL 2019-06-24 09:02:00 Laxmi Cline [facility] (NA, K, CL, CO2, Medical Branch GLUCOSE, BUN, CREATININE, CA) POCT GLUCOSE 2019-06-24 01:18:00 Charly [facility] (AUTOMATED) Medical Branch POCT GLUCOSE 2019-06-23 21:23:00 Charly [facility] (AUTOMATED) Medical Branch POCT GLUCOSE 2019-06-23 17:02:00 Charly [facility] (AUTOMATED) Medical Branch POCT GLUCOSE 2019-06-23 14:47:00 Charly [facility] (AUTOMATED) Medical Branch POCT GLUCOSE 2019-06-23 11:08:00 Charly [facility] (AUTOMATED) Medical Branch MAGNESIUM 2019-06-23 10:29:00 Charly [facility] TROPONIN I 2019-06-23 10:29:00 [facility]OL[facility] 2019-06-23 10:29[facility] ([facility], K, CL, CO2, Medical Branch GLUCOSE, BUN, CREATININE, CA) CBC WITH DIFFERENTIAL 2019-06-23 10:29:00 [facility] [place] POCT GLUCOSE 2019-06-23 06:56:[facility] XR CHEST 1 VW 2019-06-23 03:42:03 [facility] TROP[facility]IN [facility] 2019-06-23 03:26:00 [facility] BASIC METABOLIC PANEL 2019-06-23 03:26:00 [facility] (NA, K, CL, CO2, Medical Branch GLUCOSE, BUN, CREATININE, CA) POCT GLUCOSE 2019-06-23 03:09:00 [facility] (AUTOMATED) [facility] BASIC METABOLIC PANEL 2019-06-23 00:35:00 [facility] (NA, K, CL, CO2, Medical Branch GLUCOSE, BUN, CREATININE, CA) POCT GLUCOSE 2019-06-22 23:36:00 [facility] (AUTOMATED) Medical Branch POCT GLUCOSE 2019-06-22 20:50:00 [facility] (AUTOMATED) Medical Branch POCT GLUCOSE 2019-06-22 20:10:00 Norm [facility] (AUTOMATED) [facility] NOTICE OF PRIVACY 2019-06-22 19:51:59 Doctor Unassigned, [facility] PRACTICES Name Medical Branch EKG-12 LEAD 2019-06-22 19:27:52 Mook White [facility] TROPONIN I 2019-06-22 19:11:00 Norm Erma [facility] COMP. METABOLIC PANEL 2019-06-22 19:11:00 Norm Erma [facility] ([id number]) Medical Branch ACUTE CARE VENOUS BLOOD 2019-06-22 19:11:00 Erma Zheng [facility] GAS [facility] CBC WITH DIFFERENTIAL 2019-06-22 19:11:00 [facility] GLYCOSYLATED HEMOGLOBIN 2019-06-22 19:11:00 Smooth Parks [facility] (A1C) [facility] URINALYSIS 2019-06-22 19:11:00 [facility] POCT GLUCOSE(AGE 2019-06-22 19:11:00 [facility] >30DAYS) [facility] EKG-12 LEAD 2019-06-22 18:51:31 [facility] 2019-06-22 18:44:00 [facility] (AUTOMATED) [facility] CONSENT/REFUSAL FOR 2019-06-22 18:38:35 Doctor Unassigned, No Un [facility] DIAGNOSIS AND TREATMENT [facility] XR SPINE THORACIC 2 VW 2018-12-25 17:26:28 Sterling Harper [facility] ASSIGNMENT OF BENEFITS 2018-12-25 16:54:00 Doctor Unassigned, No [facility] Encounters Start End Encounter Admission Attending Care Care Encounter Source Date/Time Date/Time Type Type Clinicians Facility Department ID 2021-04-07 Inpatient KENDRICK Corona [facility] [id number] [facility] 10:00:[address] 2022-08-22 2022-08-22 Validation Scientist 1, [facility] Sleep Lab Bed [facility] 1. 2.840.114 [id number] Univers 20:00:00 22:30:00 Visit Lianna Moy 350.1.13. 10 princess [facility] 4.2.7.2.686 [facility] [id number] [place] [address] Branch 2022-08-22 2022-08-22 Outpatient R LIANNA MOY [facility] [id number] Univers 20:00:00 20:00:00 LIANNA MOY ity [facility] 2022-08-22 2022-08-22 Orders Doctor KELLER 1.2.840.114 [id number] Univers 00:00:00 00:00:00 Only UnassVINCENT bautista 350.1.13.10 ity of [facility] 4.2.7.2.686 Saeid as [id number] [facility] 009 Branch 2022-06-22 2022-06-22 Orders Doctor ARIANNA 1.2.840.114 [id number] Univers 00:00:00 00:00:00 Only Unassigned, VINCENT 350.1.13.10 ity of [place] [facility] 4.2.7.2.686 Saeid as [id number] [place] [address] Branch 2022-06-17 2022-06-17 Outpatient Atkins, [facility] H[facility] [id number] [facility] 12:56:00 12:56:[address] [facility] 2021-08-06 2021-08-06 Outpatient EL Harper, [facility] SUGL [id number] [facility] 12:36:00 12:36:[address] [facility] 2021-03-02 2021-03-03 Inpatient EL Pepper, [facility] TELE [id number] [facility] 08:40:00 09:13:[address] [facility] 2021-01-26 2021-01-26 Inpatient EL ATKINS, [facility] SUGL [id number] [facility] 10:30:00 09:19:[address] [facility] 2021-01-12 2021-01-12 Outpatient Pepper, [facility] SUGL [id number] [facility] 09:00:00 09:00:[address] [facility] 2021-01-08 2021-01-08 Inpatient EL Pepper, [facility] SUGL [id number] [facility] 09:00:00 08:22:[address] [facility] 2019-09-22 2019-09-23 Outpatient X ALDAJEANINE, [facility] [id number] Univers 18:10:26 14:25:00 LAXMI sánchez of [facility] 2019-06-25 2019-06-25 Transition Rahul Mac 1.2.840.114 [id number] Univers 00:00:00 00:00:00 of Care Jong Camille Taylor 350.1.13.10 ity [place] 4.2.7.2.686 [place] [id number] [place] [address] Branch 2019-06-25 2019-06-25 Transition Rahul Mac 1.2.840.114 [id number] 00:00:00 00:00:00 of Care Jong Engy 350.1.13.10 [place] 4.2.7.2.686 [id number] 2019-06-22 2019-06-24 Inpatient X CHARLY SMOOTH [facility] [id number] Univers 12:49:29 11:48:[address] [facility] 2019-06-22 2019-06-24 [facility] 1.2.840.1 14 [id number] Univers 12:49:29 11:48:00 Encounter Smooth Parks 350.1.13.10 ity of [place] 4.2.7.2.686 [facility] [id number] [facility] [address] [place] 2019-06-22 2019-06-24 [facility] 1.2.840.1 14 [id number] 12:49:29 11:48:00 Encounter Smooth Parks 350.1.13.10 [place] 4.2.7.2.686 [place] [id number] 2019-06-22 2019-06-22 Orders Doctor KELLER 1.2.840.114 [id number] Univers 00:00:00 00:00:00 Only Unassigned, VINCENT 350.1.13.10 ity [facility] [place] [facility] 4.2.7.2.686 Saeid as [id number] [facility] [address] [place] 2019-06-22 2019-06-22 Orders Doctor ARIANNA 1.2.840.114 [id number] 00:00:00 00:00:00 Only Unassigned, VINCENT 350.1.13.10 [place] 4.2.7.2.686 [id number] 2018-12-25 2018-12-25 Hospital Radiology [facility] 1.2.840.114 [id number] Univers 11:55:23 23:59:00 Encounter Sheila 350.1.13.10 ity of [place] 4.2.7.2.686 [facility] [id number] [facility] [address] [place] 2018-12-25 2018-12-25 [facility] Radiology [facility] 1.2.840.114 [id number] 11:55:23 23:59:00 Encounter [place] 350.1.13.10 [place] 4.2.7.2.686 [place] [id number] 2018-12-25 2018-12-25 Orders Doctor ARIANNA 1.2.840.114 [id number] Univers 00:00:00 00:00:00 Only Unassigned, [facility]INC[facility] 350.1.13.10 [facility] 4.2.7.2.686 Saeid as [id number] [facility] 009 Branch 2018-12-25 2018-12-25 Orders Doctor ARIANNA 1.2.840.114 [id number] 00:00:00 00:00:00 Only Unassigned, VINCENT 350.1.13.[id number] 009 Results Test Description Test Time Test Comments Results Result [facility] e Comments - CT LD LUNG CA 2021-08-06 SCREENING 14:50:00 [facility] 1960 Sex: M Patient Name: SHEY ORTEGA Unit No: [id number] EXAMS: CPT CODE: [id number] CT LD LUNG CA SCREENING 22223 EXAM: Screening CT chest without contrast (low dose) LOCATION: B2 INDICATION: Lung cancer screening TECHNIQUE: Axial 2.5 mm images of the chest were obtained using low-dose CT technique, with sagittal and coronal reformats. This exam was performed according to our departmental dose-optimization program, which includes automated exposure control, adjustment of the mA and/or kV according to patient size, and/or use of iterative reconstruction technique. COMPARISON: Low-dose CT chest dated 01/26/2021 DISCUSSION: RISK FACTORS: Age: 61 years Smokin pack years NODULES: 5 mm and 4 mm right upper lobe nodules (axial image 27), 8 mm left upper lobe nodule (axial image 35), and 4 mm left lower lobe nodule (axial image 75) are unchanged. No new nodule is identified. Additional findings: Lungs: 8 mm left major fissural lymph node is unchanged. Small calcified left upper lobe granuloma is also unchanged. Mediastinum: The heart is normal in size. Coronary artery calcifications are present. Lymph nodes: There is no mediastinal, hilar, or axillary lymphadenopathy. Osseous structures/soft tissues: Mild degenerative changes are seen in the spine. Upper abdomen: 1.3 cm lipid rich left adrenal gland nodule is present; no follow-up is needed. IMPRESSION: Lung-Rads Category 2. RECOMMENDATION: Recommend continued annual low-dose screening CT chest in 12 months. FO R INTERNAL CODING PURPOSES ONLY RESULT CODE: L2 FOLLOW UP: L12 at 1450 Reported and signed by: Ino Odom MD [facility] NAME: SHEY ORTEGA [address] [facility] [address] PHYS: [place] [address] : 1960 AGE: 61 SEX: M LOC: Z.ZCTS PHONE #: [phone] EXAM DATE: 08/06/2021 STATUS: REG CLI FAX #: [phone] RAD #: D/C DT PAGE 1 Signed Report (CONTINUED) Patient Name: SHEY ORTEGA Unit No: [id number] EXAMS: CPT CODE: [id number] CT LD LUNG CA SCREENING 63664 (Continued) CC: Tico WALDRON Technologist: Nae Archuleta, RT(R) CTDI: DLP: Trnscrpt: 08/06/2021 (1450) t.[email or web address].PR7 [facility] NAME: SHEY ORTEGA [id number] [facility] [address] PHYS: [place] [address] : 1960 AGE: 61 SEX: M LOC: JoselinCTS PHONE #: [phone] EXAM DATE: 08/06/2021 STATUS: REG CLI FAX #: [phone] RAD #: D/C DT PAGE 2 Signed Report Patient Name: SHEY ORTEGA Unit No: [id number] EXAMS: CPT CODE: [id number] CT LD LUNG CA SCREENING 68354 (Continued) Orig Print D/T: S: 08/06/2021 (1450) [facility] NAME: SHEY ORTEGA [id number] [facility] [address] PHYS: [place] [address] : 1960 AGE: 61 SEX: M LOC: DIVYA PHONE #: [phone] EXAM DATE: 08/06/2021 STATUS: REG CLI FAX #: [phone] RAD #: D/C DT PAGE 3 Signed Report BASIC METABOLIC PANEL 2021-03-03 05:54:00 Test Item Value Reference Range Interpretation Comme nts SODIUM (test code = NA) 136 MMOL/L 137-145 L POTASSIUM (test code = K) 4.1 MMOL/L 3.5-5.1 N CHLORIDE (test code = CL) 96 MMOL/L 98-107 L CARBON DIOXIDE (test code = CO2) 31 MMOL/L 22-30 H ANION GAP (test code = GAP) 13 MMOL/L 14-24 L GLUCOSE (test code = GLU) 213 MG/DL 74-106 H BLOOD UREA NITROGEN (test code = 26 MG/DL 9-20 H BUN) GLOMERULAR FILTRATION RATE (test > 60 Reporting units: ml/min/1.73 code = GFR) m2 (Modified MD RD Formula)Referen ce Range: > or = 60 ml/min/1.7 3 m2 CREATININE (test code = CREAT) 1.00 MG/DL 0.66-1.25 N CALCIUM (test code = CA) 9.5 MG/DL 8.4-10.2 N CBC W/AUTO [id number] 05:41:00 Test Item Value Reference Range Interpretation Comments WHITE BLOOD CELL (test code = 6.2 K/MM3 3.8-9.8 N WBC) RED BLOOD CELL (test code = 4.06 M/MM3 3.95-5.67 N RBC) HEMOGLOBIN (test code = HGB) 11.6 G/DL 12.4-16.7 L HEMATOCRIT (test code = HCT) 36.8 % 35.9-49.5 N MEAN CELL VOLUME (test code = 91 fL 81.7-96.1 N MCV) MEAN CELL HGB (test code = MCH) 28.6 pg 27.6-33.2 N MEAN CELL HGB CONCETRATION 31.5 % 32.9-35.5 L (test code = MCHC) RED CELL DISTRIBUTION WIDTH 14.2 % 12.1-15.2 N (test code = RDW) PLATELET COUNT (test code = 190 K/MM3 129-368 N PLT) MEAN PLATELET VOLUME (test code 10.9 fl 7.4-10.4 H = MPV) NEUTROPHIL % (test code = NT%) 63.4 % 43-75 N IMMATURE GRANULOCYTE % (test 0.2 % 0.0-2.0 N code = IG%) LYMPHOCYTE % (test code = LY%) 22.1 % 14-44 N MONOCYTE % (test code = MO%) 9.0 % 4-13 N EOSINOPHIL % (test code = EO%) 4.5 % 0-6 N BASOPHIL % (test code = BA%) 0.8 % 0-2 N NUCLEATED RBC % (test code = 0.0 % 0-1.0 N NRBC%) NEUTROPHIL # (test code = NT#) 3.96 K/mm3 2.0-7.6 N IMMATURE GRANULOCYTE # (test 0.01 x10 3/uL 0-0.03 N code = IG#) LYMPHOCYTE # (test code = LY#) 1.38 K/mm3 1.0-3.8 N MONOCYTE # (test code = MO#) 0.56 K/mm3 0.1-0.8 N EOSINOPHIL # (test code = EO#) 0.28 K/mm3 0.0-0.2 H BASOPHIL # (test code = BA#) 0.05 K/mm3 0.0-0.2 N NUCLEATED RBC # (test code = 0.00 K/mm3 0.0-0.1 N NRBC#) GLUCOSE BEDSIDE [id number] 20:00:00 Test Item Value Reference Range Interpretation Comments GLUCOSE BEDSIDE TESTING (test code 302 MG/DL 60-99 HH = GLUBED) GLUCOSE BEDSIDE [id number] 16:19:00 Test Item Value Reference Range Interpretation Comments GLUCOSE BEDSIDE TESTING (test code 346 MG/DL 60-99 HH = GLUBED) GLUCOSE BEDSIDE [id number] 11:59:00 Test Item Value Reference Range Interpretation Comments GLUCOSE BEDSIDE TESTING (test code 265 MG/DL 60-99 H = GLUBED) PROTHROMBIN [id number] 07:22:00 Test Item Value Reference Range Interpretation Comments PROTHROMBIN TIME 11.2 SECONDS 9.5-12.7 N PATIENT (test code = PTP) INTERNATIONAL NORMAL 1.0 0.86-1.14 N The INR is to be RATIO (test code = used only for INR) monitoring oral anticoagulantth erap y. INDICATION I NR VALUE ---- ---- ---- -------1. Prophylaxis, de ep venous thrombos is, including high risk surgery. 2.0 - 3.0 2. Prophylaxis, deep venous thrombosis, hip surgery, treatm ent for deep venous thrombosis or pulmonary prevention of systemic emboli sm in patients wit h valvular heart disease, atrial fibrillation, tissue heart va lve, or acute myocar dial infarction. 2.0 - 3.0 3. Rf Design Engineer al prosthesis hear t valves, recurre nt systemic emboli sm. 3.0 - 4.5 PTT [id number] 07:22:00 Test Item Value Reference Range Interpretation Comments PTT ACTIVATED (test code = APTT) 29.6 SECONDS 25.1-36.5 N BASIC METABOLIC [id number] 07:19:00 Test Item Value Reference Range Interpretation Comments SODIUM (test code = 140 MMOL/L 137-145 N NA) POTASSIUM (test code = 4.1 MMOL/L 3.5-5.1 N K) CHLORIDE (test code = 95 MMOL/L 98-107 L CL) CARBON DIOXIDE (test 34 MMOL/L 22-30 H code = CO2) GLUCOSE (test code = 254 MG/DL 74-106 H GLU) BLOOD UREA NITROGEN 27 MG/DL 9-20 H (test code = BUN) GLOMERULAR FILTRATION > 60 Report ing units: RATE (test code = GFR) ml/mi n/1.73 m2 (Modified MDRD Formula)Referen ce Range: > or = 6 0 ml/min/1.73 m2 CREATININE (test code 1.10 MG/DL 0.66-1.25 N = CREAT) CALCIUM (test code = 9.7 MG/DL 8.4-10.2 N CA) Is this a LINE draw? [id number] 07:19:00 Test Item Value Reference Range Interpretation Comments MAGNESIUM (test code = MAG) 1.3 MG/DL 1.6-2.3 L Is this a LINE draw? NCBC W/AUTO [id number] 07:09:00 Test Item Value Reference Range Interpretation Comments WHITE BLOOD CELL (test code = 6.7 K/MM3 3.8-9.8 N WBC) RED BLOOD CELL (test code = 4.34 M/MM3 3.95-5.67 N RBC) HEMOGLOBIN (test code = HGB) 12.5 G/DL 12.4-16.7 N HEMATOCRIT (test code = HCT) 40.0 % 35.9-49.5 N MEAN CELL VOLUME (test code = 92 fL 81.7-96.1 N MCV) MEAN CELL HGB (test code = MCH) 28.8 pg 27.6-33.2 N MEAN CELL HGB CONCETRATION 31.3 % 32.9-35.5 L (test code = MCHC) RED CELL DISTRIBUTION WIDTH 14.1 % 12.1-15.2 N (test code = RDW) PLATELET COUNT (test code = 219 K/MM3 129-368 N PLT) MEAN PLATELET VOLUME (test code 10.8 fl 7.4-10.4 H = MPV) NEUTROPHIL % (test code = NT%) 67.7 % 43-75 N IMMATURE GRANULOCYTE % (test 0.3 % 0.0-2.0 N code = IG%) LYMPHOCYTE % (test code = LY%) 19.6 % 14-44 N MONOCYTE % (test code = MO%) 7.8 % 4-13 N EOSINOPHIL % (test code = EO%) 3.9 % 0-6 N BASOPHIL % (test code = BA%) 0.7 % 0-2 N NUCLEATED RBC % (test code = 0.0 % 0-1.0 N NRBC%) NEUTROPHIL # (test code = NT#) 4.54 K/mm3 2.0-7.6 N IMMATURE GRANULOCYTE # (test 0.02 x10 3/uL 0-0.03 N code = IG#) LYMPHOCYTE # (test code = LY#) 1.31 K/mm3 1.0-3.8 N MONOCYTE # (test code = MO#) 0.52 K/mm3 0.1-0.8 N EOSINOPHIL # (test code = EO#) 0.26 K/mm3 0.0-0.2 H BASOPHIL # (test code = BA#) 0.05 K/mm3 0.0-0.2 N NUCLEATED RBC # (test code = 0.00 K/mm3 0.0-0.1 N NRBC#) Is this a LINE draw? NCOVID 19 Asymptomatic IH [id number] 06:35:00 Test Item Value Reference Range Interpretation Comments COVID 19 NEGATIVE Negative "Negative resul ts from Asymptomatic IH AG patients with symptom (test code = onset beyondfiv e days, COVNONPUIAG) should be treat ed as presumptive, andconfirmation with a molecular assay , if necessary forpa tient management may be performed. Nega tive results do notr ule out COVID-19 and sh ould not be used as the sole basisfor treatm ent or patient managem ent decisions, includinginfect ion control decisio ns. Negative result s should beconsidered in the context of a pa tients recent exposure s,history, and the presenc e of clinical signs and symptomsconsist ent with COVID-19.This t est detects both vi able andnon-viable S ARS-CoV and SARS CoV-2. Test performance dep endson the amount of virus (antigen) in the sample." - CT LD LUNG CA [id number] 14:57:00 [facility] : 1960 Sex: M Patient Name: SHEY ORTEGA Unit No: [id number] EXAMS: CPT CODE: [id number] CT LD LUNG CA SCREENING 05873 EXAM: Screening CT chest without contrast (low dose) LOCATION: B2 INDICATION: Lung cancer screening TECHNIQUE: Axial 2.5 mm images of the chest were obtained using low-dose CT technique, with sagittal and coronal reformats. This exam was performed according to our departmental dose- optimization program, which includes automated exposure control, adjustment of the mA and/or kV according to patient size, and/or use of iterative reconstruction technique. COMPARISON: None DISCUSSION: RISK FACTORS: Age: 60 years Smokin pack years Currently smoking: Yes History of cancer: No NODULES: 5 mm right upper lobe nodule (axial image 20), adjacent 4 mm right upper lobe nodule (axial image 21), 8 mm left upper lobe nodule (axial image 36), and 4 mm left lower lobe nodule (axial image 71) are present. 6 mm calcified left upper lobe nodule is also noted. Additional findings: Lungs: 8 mm left major fissural lymph node is seen. Mediastinum: The heart is normal in size. Coronary artery calcifications are present. 0.9 cm hypodense left thyroid nodule is present. Lymph nodes: There is no mediastinal, axillary, or hilar lymphadenopathy. Osseous structures/soft tissues: Mild degenerative changes are seen in the spine. Upper abdomen: 1.4 cm left superior renal cyst is present. IMPRESSION: Lung-Rads Category 4A. RECOMMENDATION: Recommend three-month follow up low-dose CT chest. FOR INTERNAL CODING PURPOSES ONLY RESULT CODE: L4A FOLLOW UP: L3 at 1457 Reported and signed by: Ino Odom MD [facility] NAME: SHEY ORTEGA [id number] [facility]: [place] [address] : 1960 AGE: 60 SEX: M LOC: DIVYA PHONE #: [phone] DATE: 01/26/2021 STATUS: REG CLI FAX #: [phone] RAD #: D/C DT PAGE 1 Signed Report (CONTINUED) Patient Name: SHEY ORTEGA Unit No: [id number] EXAMS: CPT CODE: [id number] CT LD LUNG CA SCREENING 32251 (Continued) CC: Tico WALDRON Technologist: Nae Archuleta, RT(R) CTDI: DLP: Trnscrpt: 01/26/2021 (1457) [id number].[email or web address] [facility] NAME: SHEY ORTEGA [address] [facility] PHYS: [place] [address] : 1960 AGE: 60 SEX: M LOC: JoselinCTS PHONE #: [phone] EXAM DATE: 01/26/2021 STATUS: REG CLI FAX #: [phone] RAD #: D/C DT PAGE 2 Signed Report Patient Name: SHEY ORTEGA Unit No: [id number] EXAMS: CPT CODE: [id number] CT LD LUNG CA SCREENING 21596 (Continued) Orig Print D/T: S: 01/26/2021 (1636) [facility] NAME: SHEY ORTEGA [address] [facility] [address] PHYS: [place] [address] : 1960 AGE: 60 SEX: M LOC: JoselinCTS PHONE #: [phone] EXAM DATE: 01/26/2021 STATUS: REG CLI FAX #: [phone] RAD #: D/C DT PAGE 3 Signed Report- NM MYOCRD SPECT R/S MULT 2021-01-12 18:16:00 [facility] : 1960 Sex: M Patient Name: SHEY ORTEGA Unit No: [id number] EXAMS: CPT CODE: [id number] NM MYOCRD SPECT R/S [id number] INDICATION: Unstable angina. The patient underwent myocardial perfusion imaging utilizing IV injection of 29.9 mCi Tc99M Cardiolite at rest and IV injection of 32.5 mCi Tc99M Cardiolite at peak stress. SPECT imaging was obtained at rest and stress. Gated SPECT imaging was obtained at stress. Regadenoson protocol was utilized for stress. FINDINGS: There is a mild fixed inferior posterior perfusion defect. CONCLUSIONS: 1. NORMAL REGADENOSON TECHNETIUM 99 CARDIOLITE SHOWING A MILD INFERIOR POSTERIOR ATTENUATION ARTIFACT. 2. GATED PERFUSION IMAGING SHOWS NORMAL LEFT VENTRICULAR SIZE AND SYSTOLIC FUNCTION WITH NORMAL WALL MOTION. END-DIASTOLIC VOLUME IS 82 mL, END-SYSTOLIC VOLUME IS 25 mL, AND THE EJECTION FRACTION IS 70 %. at 1816 Reported and signed by: Russ Cool M.D. CC: Russ Cool Technologist: MelissaL. Sebastian RT(R)(M); Katharina Collins RT(N) Transcrpt Date/Tm/Trnsp: 01/12/2021 (1815) Hayley Orig Print D/T: S: 01/12/2021 (1818) [facility] NAME: SHEY ORTEGA [id number] [facility] [address] PHYS: [place] [address] : 1960 AGE: 60 SEX: M LOC: JACQUELIN PHONE #: [phone] EXAM DATE: 01/08/2021 STATUS: SERENA MEDELLIN FAX #: [phone] RADIOLOGY NO: PAGE 1 Signed ReportPOCT GLUCOSE (AUTOMATED)2019-06-24 16:34:00 Test Item Value Reference Range Interpretation Comments POCT GLU (test code = 9491621459) >600 70-110 HH Lab Interpretation (test code = Abnormal 45632-1) [facility] GLUCOSE (AUTOMATED)2019-06-24 16:34:00 Test Item Value Reference Range Interpretation Comments POCT GLU (test code = 3173988180) >600 70-110 HH Lab Interpretation (test code = Abnormal 84157-0) [facility] GLUCOSE (AUTOMATED)2019-06-24 13:51:00 Test Item Value Reference Range Interpretation Comments POCT GLU (test code = 9897435192) 266 mg/dL 70-110 H Lab Interpretation (test code = Abnormal 96749-2) [facility] Metabolic Panel (NA, K, CL, CO2, GLUCOSE, BUN, CREATININE, CA)2019-06-24 11:45:00 Test Item Value Reference Range Interpretation Comments NA (test code = 137 mmol/L 135-145 9410170143) K (test code = 4.3 mmol/L 3.5-5 1490811248) CL (test code = 105 mmol/L 98-108 2738545368) CO2 TOTAL (test code = 26 mmol/L 23-31 8572083428) AGAP (test code = 2-16 1726875305) BUN (test code = 29 mg/dL 7-23 H 8858239403) GLUCOSE (test code = 270 mg/dL 70-110 H 1650037649) CREATININE (test code = 1.13 mg/dL 0.6-1.25 4067430793) CALCIUM (test code = 9.1 mg/dL 8.6-10.6 8169768323) eGFR Calculation mL/min/1.73m2 (Non-) (test code = 2483228291) eGFR Calculation mL/min/1.73m2 () (test code = 6659527812) JULI (test code = JULI) Association of Glomerular Filtration Rate (GFR) and Staging of Kidney Disease* + --+ --+ ------+| GFR (mL/min/1.73 m2) ?| With Kidney Damage ?| ?Without Kidney Damage+ --------+ --------+ +| ?>90 ?| ?Stage one ?| ? Normal ?+ ---+ ---+ -------+| ?60-89 ?| ?Stage two ?| ? Decreased GFR ? + --+ --+ ------+| ?30-59 ?| ?Stage three ?| ? Stage three ? + --+ --+ ------+| ?15-29 ?| ?Stage four ? | ? Stage four ?+ ---+ ---+ -------+| ?<15 (or dialysis) ? ?| ?Stage five ? | ? Stage five ?+ ---+ ---+ -------+ *Each stage assumes the associated GFR level has been in effect for at least three months. ?Stages 1 to 5, with or without kidney disease, indicate chronic kidney disease. Notes: Determination of stages one and two (with eGFR >59mL/min/1.73 m2) requires estimation of kidney damage for at least three months as defined by structural or functional abnormalities of the kidney, manifested by either:Pathological abnormalities or Markers of kidney damage (including abnormalities in the composition of the blood or urine or abnormalities in imaging tests). Lab Interpretation Abnormal (test code = 37089-8) [facility] GLUCOSE (AUTOMATED)2019-06-24 01:40:00 Test Item Value Reference Range Interpretation Comments POCT GLU (test code = 7003623603) 271 mg/dL 70-110 H Lab Interpretation (test code = Abnormal 47970-7) [facility] GLUCOSE (AUTOMATED)2019-06-23 21:55:00 Test Item Value Reference Range Interpretation Comments POCT GLU (test code = 2108148602) 211 mg/dL 70-110 H Lab Interpretation (test code = Abnormal 66443-7) [facility] GLUCOSE (AUTOMATED)2019-06-23 17:43:00 Test Item Value Reference Range Interpretation Comments POCT GLU (test code = 7859781245) 324 mg/dL 70-110 H Lab Interpretation (test code = Abnormal 94571-7) [facility] GLUCOSE (AUTOMATED)2019-06-23 14:50:00 Test Item Value Reference Range Interpretation Comments POCT GLU (test code = 8062700004) 362 mg/dL 70-110 H Lab Interpretation (test code = Abnormal 64842-6) [facility] GLUCOSE (AUTOMATED)2019-06-23 13:55:00 Test Item Value Reference Range Interpretation Comments POCT GLU (test code = 9913147210) 276 mg/dL 70-110 H Lab Interpretation (test code = Abnormal 76568-0) [id number] 11:18:00 Test Item Value Reference Range Interpretation Comments TROPONIN I (test 0.007 ng/mL See_Comment [Automated code = 5354760612) message] The system which generated this result transmitted reference range : <=0.034. The reference range was not used to interpret this result as normal/abnormal . JULI (test code = Equal or Less than JULI) 0.034 ng/ml---Normal ?Note: Cardiac troponin begins to rise 3-4 hours after the onset of ischemia. Repeat in 4-6 hours if the sample was drawn within 3-4 hours of the onset of the symptom and found normal. Between 0.035 and 0.120 ng/mL--- Borderline. Questionable myocardial injury or necrosis ? ?Note: Serial measurement may be necessary to confirm or exclude the diagnosis of myocardial injury or necrosis; Clinical correlation (symptoms, EKGs, imaging studies, and others) required; Repeat in 4-6 hours if clinically indicated. ? Equal or Higher than 0.121 ng/mL---Abnormal. Myocardial Injury or Necrosis Likely ? Biotin has been reported to cause a negative bias, interpret results relative to patient's use of biotin. ? Lab Interpretation Normal (test code = 55389-8) [facility] GLUCOSE (AUTOMATED)2019-06-23 11:11:00 Test Item Value Reference Range Interpretation Comments POCT GLU (test code = 2838567383) 184 mg/dL 70-110 H Lab Interpretation (test code = Abnormal 47376-1) [facility] [id number] 11:07:00 Test Item Value Reference Range Interpretation Comments MAGNESIUM (test code = 5913905525) 1.6 mg/dL 1.7-2.4 L Lab Interpretation (test code = Abnormal 66851-5) [facility] (NA, K, CL, CO2, GLUCOSE, BUN, CREATININE, CA)2019-06-23 11:07:00 Test Item Value Reference Range Interpretation Comments NA (test code = 136 mmol/L 135-145 1783951874) K (test code = 4.1 mmol/L 3.5-5 7071356787) CL (test code = 102 mmol/L 98-108 3625969354) CO2 TOTAL (test code = 25 mmol/L 23-31 8385971785) AGAP (test code = 2-16 0701014308) BUN (test code = 32 mg/dL 7-23 H 5131359558) GLUCOSE (test code = 162 mg/dL 70-110 H 2270476206) CREATININE (test code = 1.34 mg/dL 0.6-1.25 H 0030916360) CALCIUM (test code = 9.0 mg/dL 8.6-10.6 8081817800) eGFR Calculation mL/min/1.73m2 (Non-) (test code = 6956931550) eGFR Calculation mL/min/1.73m2 () (test code = 6775800946) JULI (test code = JULI) Association of Glomerular Filtration Rate (GFR) and Staging of Kidney Disease* + --+ --+ ------+| GFR (mL/min/1.73 m2) ?| With Kidney Damage ?| ?Without Kidney Damage+ --------+ --------+ +| ?>90 ?| ?Stage one ?| ? Normal ?+ ---+ ---+ -------+| ?60-89 ?| ?Stage two ?| ? Decreased GFR ? + --+ --+ ------+| ?30-59 ?| ?Stage three ?| ? Stage three ? + --+ --+ ------+| ?15-29 ?| ?Stage four ? | ? Stage four ?+ ---+ ---+ -------+| ?<15 (or dialysis) ? ?| ?Stage five ? | ? Stage five ?+ ---+ ---+ -------+ *Each stage assumes the associated GFR level has been in effect for at least three months. ?Stages 1 to 5, with or without kidney disease, indicate chronic kidney disease. Notes: Determination of stages one and two (with eGFR >59mL/min/1.73 m2) requires estimation of kidney damage for at least three months as defined by structural or functional abnormalities of the kidney, manifested by either:Pathological abnormalities or Markers of kidney damage (including abnormalities in the composition of the blood or urine or abnormalities in imaging tests). Lab Interpretation Abnormal (test code = 96832-2) [facility] WITH [id number] 11:07:00 Test Item Value Reference Range Interpretation Comments WBC (test code = See_Comment [Automated 5282-2) message] The sy stem which generated this result transmitted reference range : 4.20 - 10.70 10*3/?L. The reference range was not used to interpret this result as normal/abnormal . RBC (test code = See_Comment L [Automated 979-8) message] The sy stem which generated this result transmitted reference range : 4.26 - 5.52 10*6/?L. The reference range was not used to interpret this result as normal/abnormal . HGB (test code = 12.4 g/dL 12.2-16.4 718-7) HCT (test code = 37.1 % 38.4-49.3 L 4544-3) MCV (test code = 87.3 fL 81.7-95.6 787-2) MCH (test code = 29.2 pg 26.1-32.7 785-6) MCHC (test code = 33.4 g/dL 31.2-35 786-4) RDW-SD (test code = 41.5 fL 38.5-51.6 02566-7) RDW-CV (test code = 13.2 % 12.1-15.4 788-0) PLT (test code = See_Comment [Automated 777-3) message] The sy stem which generated this result transmitted reference range : 150 - 328 10*3/ ?L. The reference r eddy was not used to interpret this result as normal/abnormal . MPV (test code = 11.3 fL 9.8-13 86914-5) NRBC/100 WBC (test See_Comment [Automat ed code = 7970975933) message] The system which generated this result transmitted reference range : 0.0 - 10.0 /100 WBCs. The refer ence range was not u sed to interpret th is result as normal/abnormal . NRBC x10^3 (test code <0.01 See_Comment [Auto mated = 8170616543) message] The s ystem which generated this result transmitted reference range : 10*3/?L. The reference range was not used to interpret this result as normal/abnormal . GRAN MAT (NEUT) % 56.6 % (test code = 770-8) IMM GRAN % (test code 0.00 % = 9494818995) LYMPH % (test code = 29.4 % 736-9) MONO % (test code = 7.8 % 5905-5) EOS % (test code = 5.2 % 713-8) BASO % (test code = 1.0 % 706-2) GRAN MAT x10^3(ANC) 3.48 10*3/uL 1.99-6.95 (test code = 9949096970) IMM GRAN x10^3 (test <0.03 0-0.06 code = 4658242450) LYMPH x10^3 (test code 1.81 10*3/uL 1.09-3.23 = 731-0) MONO x10^3 (test code 0.48 10*3/uL 0.36-1.02 = 742-7) EOS x10^3 (test code = 0.32 10*3/uL 0.06-0.53 711-2) BASO x10^3 (test code 0.06 10*3/uL 0.01-0.09 = 704-7) Lab Interpretation Abnormal (test code = 04713-7) [facility] 07:00:00 Test Item Value Reference Range Interpretation Comments POCT GLU (test code = 4022890086) 105 mg/dL 70-110 Lab Interpretation (test code = Normal 23604-4) [facility] [id number] 06:15:00 Test Item Value Reference Range Interpretation Comments TROPONIN I (test 0.009 ng/mL See_Comment [Automated code = 5153066368) message] The system which generated this result transmitted reference range : <=0.034. The reference range was not used to interpret this result as normal/abnormal . JULI (test code = Equal or Less than JULI) 0.034 ng/ml---Normal ?Note: Cardiac troponin begins to rise 3-4 hours after the onset of ischemia. Repeat in 4-6 hours if the sample was drawn within 3-4 hours of the onset of the symptom and found normal. Between 0.035 and 0.120 ng/mL--- Borderline. Questionable myocardial injury or necrosis ? ?Note: Serial measurement may be necessary to confirm or exclude the diagnosis of myocardial injury or necrosis; Clinical correlation (symptoms, EKGs, imaging studies, and others) required; Repeat in 4-6 hours if clinically indicated. ? Equal or Higher than 0.121 ng/mL---Abnormal. Myocardial Injury or Necrosis Likely ? Biotin has been reported to cause a negative bias, interpret results relative to patient's use of biotin. ? Lab Interpretation Normal (test code = 42322-8) [facility] (NA, K, CL, CO2, GLUCOSE, BUN, CREATININE, CA)2019-06-23 04:07:00 Test Item Value Reference Range Interpretation Comments NA (test code = 134 mmol/L 135-145 L 2431471848) K (test code = 4.3 mmol/L 3.5-5 1775624550) CL (test code = 101 mmol/L 98-108 8352173973) CO2 TOTAL (test code = 26 mmol/L 23-31 0820340270) AGAP (test code = 2-16 6478324693) BUN (test code = 39 mg/dL 7-23 H 2887397742) GLUCOSE (test code = 242 mg/dL 70-110 H 1241541668) CREATININE (test code = 1.57 mg/dL 0.6-1.25 H 4665925713) CALCIUM (test code = 9.3 mg/dL 8.6-10.6 2156237984) eGFR Calculation mL/min/1.73m2 (Non-) (test code = 3883933271) eGFR Calculation mL/min/1.73m2 () (test code = 4662234864) JULI (test code = JULI) Association of Glomerular Filtration Rate (GFR) and Staging of Kidney Disease* + --+ --+ ------+| GFR (mL/min/1.73 m2) ?| With Kidney Damage ?| ?Without Kidney Damage+ --------+ --------+ +| ?>90 ?| ?Stage one ?| ? Normal ?+ ---+ ---+ -------+| ?60-89 ?| ?Stage two ?| ? Decreased GFR ? + --+ --+ ------+| ?30-59 ?| ?Stage three ?| ? Stage three ? + --+ --+ ------+| ?15-29 ?| ?Stage four ? | ? Stage four ?+ ---+ ---+ -------+| ?<15 (or dialysis) ? ?| ?Stage five ? | ? Stage five ?+ ---+ ---+ -------+ *Each stage assumes the associated GFR level has been in effect for at least three months. ?Stages 1 to 5, with or without kidney disease, indicate chronic kidney disease. Notes: Determination of stages one and two (with eGFR >59mL/min/1.73 m2) requires estimation of kidney damage for at least three months as defined by structural or functional abnormalities of the kidney, manifested by either:Pathological abnormalities or Markers of kidney damage (including abnormalities in the composition of the blood or urine or abnormalities in imaging tests). Lab Interpretation Abnormal (test code = 75375-5) [facility] 1 [id number] 04:04:48 No acute intrathoracic abnormality.PROCEDURE: XR CHEST 1 VW CLINICAL INDICATION: chest pain COMPARISON: 09/27/2018 FINDINGS: The lungs are partial expanded and clear. Perihilar vessels are mildlyprominent. No pleural effusion or pneumothorax is seen. The cardiomediastinal silhouette is normal. No acutebony abnormality. [facility], Radiant Results Inft User - 06/22/2019 10:05 PM CSTPROCEDURE: XR CHEST 1 VWCLINICAL INDICATION: chest pain COMPARISON: 09/27/2018FINDINGS:The lungs are partial expanded and clear.Perihilar vessels are mildlyprominent. No pleural effusion or pneumothorax is seen. The cardiomediastinal silhouette is normal. No acute bony abnormality.IMPRESSIONNo acute intrathoracic abnormality.[facility] METABOLIC PANEL (NA, K, CL, CO2, GLUCOSE, BUN, CREATININE, CA)2019-06-23 02:02:00 Test Item Value Reference Range Interpretation Comments NA (test code = 132 mmol/L 135-145 L 3025800761) K (test code = 4.7 mmol/L 3.5-5 7635014293) CL (test code = 98 mmol/L 98-108 3022898002) CO2 TOTAL (test code = 25 mmol/L 23-31 1405756373) AGAP (test code = 2-16 2565087698) BUN (test code = 40 mg/dL 7-23 H 2991280481) GLUCOSE (test code = 448 mg/dL 70-110 H 2222363691) CREATININE (test code = 1.83 mg/dL 0.6-1.25 H 2121669839) CALCIUM (test code = 9.1 mg/dL 8.6-10.6 5998627548) eGFR Calculation mL/min/1.73m2 (Non-) (test code = 1855997273) eGFR Calculation mL/min/1.73m2 () (test code = 6919085447) JULI (test code = JULI) Association of Glomerular Filtration Rate (GFR) and Staging of Kidney Disease* + --+ --+ ------+| GFR (mL/min/1.73 m2) ?| With Kidney Damage ?| ?Without Kidney Damage+ --------+ --------+ +| ?>90 ?| ?Stage one ?| ? Normal ?+ ---+ ---+ -------+| ?60-89 ?| ?Stage two ?| ? Decreased GFR ? + --+ --+ ------+| ?30-59 ?| ?Stage three ?| ? Stage three ? + --+ --+ ------+| ?15-29 ?| ?Stage four ? | ? Stage four ?+ ---+ ---+ -------+| ?<15 (or dialysis) ? ?| ?Stage five ? | ? Stage five ?+ ---+ ---+ -------+ *Each stage assumes the associated GFR level has been in effect for at least three months. ?Stages 1 to 5, with or without kidney disease, indicate chronic kidney disease. Notes: Determination of stages one and two (with eGFR >59mL/min/1.73 m2) requires estimation of kidney damage for at least three months as defined by structural or functional abnormalities of the kidney, manifested by either:Pathological abnormalities or Markers of kidney damage (including abnormalities in the composition of the blood or urine or abnormalities in imaging tests). Lab Interpretation Abnormal (test code = 46621-8) [facility]ville[facility]cosylated Hemoglobin (A1C)2019-06-23 01:18:00 Test Item Value Reference Interpretation Comments Range HGB A1C (test code = See_Comment H [Autom ated 4548-4) message] The system which generated this result transmitted reference range : 4.0 - 6.0 % NGSP. The reference range was not used to interpret this result as normal/abnormal . JULI (test code = %A1C (NGSP) JULI) Interpretation (ADA)4.8-5.6 ? ? Normal or (Non-Diabetic Range)5.7-6.4 ? ? Increased Risk (Pre-Diabetic)>6.5 ?Diabetes Indicated Lab Interpretation Abnormal (test code = 37755-8) [facility] GLUCOSE (AUTOMATED)2019-06-22 23:41:00 Test Item Value Reference Range Interpretation Comments POCT GLU (test code = 5016602923) 504 mg/dL 70-110 HH Lab Interpretation (test code = Abnormal 30970-4) [facility] GLUCOSE (AUTOMATED)2019-06-22 22:13:00 Test Item Value Reference Range Interpretation Comments POCT GLU (test code = 8463267530) 495 mg/dL 70-110 HH Lab Interpretation (test code = Abnormal 57623-9) [facility]villeTR[facility] [id number] 19:47:00 Test Item Value Reference Range Interpretation Comments TROPONIN I (test 0.007 ng/mL See_Comment [Automated code = 0118998051) message] The system which generated this result transmitted reference range : <=0.034. The reference range was not used to interpret this result as normal/abnormal . JULI (test code = Equal or Less than JULI) 0.034 ng/ml---Normal ?Note: Cardiac troponin begins to rise 3-4 hours after the onset of ischemia. Repeat in 4-6 hours if the sample was drawn within 3-4 hours of the onset of the symptom and found normal. Between 0.035 and 0.120 ng/mL--- Borderline. Questionable myocardial injury or necrosis ? ?Note: Serial measurement may be necessary to confirm or exclude the diagnosis of myocardial injury or necrosis; Clinical correlation (symptoms, EKGs, imaging studies, and others) required; Repeat in 4-6 hours if clinically indicated. ? Equal or Higher than 0.121 ng/mL---Abnormal. Myocardial Injury or Necrosis Likely ? Biotin has been reported to cause a negative bias, interpret results relative to patient's use of biotin. ? Lab Interpretation Normal (test code = 70449-4) [facility]. METABOLIC PANEL (24370)2019-06-22 19:45:00 Test Item Value Reference Range Interpretation Comments NA (test code = 127 mmol/L 135-145 L 6761802042) K (test code = 5.0 mmol/L 3.5-5 8232506194) CL (test code = 93 mmol/L 98-108 L 0416955601) CO2 TOTAL (test code = 24 mmol/L 23-31 2961476790) AGAP (test code = 2-16 6257668604) BUN (test code = 40 mg/dL 7-23 H 1584470547) GLUCOSE (test code = 716 mg/dL 70-110 HH 8313675465) CREATININE (test code = 2.14 mg/dL 0.6-1.25 H 4551469857) TOTAL BILI (test code = 0.4 mg/dL 0.1-1.6 2319705103) CALCIUM (test code = 9.1 mg/dL 8.6-10.6 5302505394) T PROTEIN (test code = 6.9 g/dL 6.3-8.2 2141369710) ALBUMIN (test code = 4.3 g/dL 3.5-5 4151939894) ALK PHOS (test code = 106 U/L 34-122 9579488395) ALTv (test code = 16 U/L 5-50 1742-6) AST(SGOT) (test code = 19 U/L 13-40 1135028724) eGFR Calculation mL/min/1.73m2 (Non-) (test code = 8420651586) eGFR Calculation mL/min/1.73m2 () (test code = 6305999957) JULI (test code = JULI) Association of Glomerular Filtration Rate (GFR) and Staging of Kidney Disease* + --+ --+ ------+| GFR (mL/min/1.73 m2) ?| With Kidney Damage ?| ?Without Kidney Damage+ --------+ --------+ +| ?>90 ?| ?Stage one ?| ? Normal ?+ ---+ ---+ -------+| ?60-89 ?| ?Stage two ?| ? Decreased GFR ? + --+ --+ ------+| ?30-59 ?| ?Stage three ?| ? Stage three ? + --+ --+ ------+| ?15-29 ?| ?Stage four ? | ? Stage four ?+ ---+ ---+ -------+| ?<15 (or dialysis) ? ?| ?Stage five ? | ? Stage five ?+ ---+ ---+ -------+ *Each stage assumes the associated GFR level has been in effect for at least three months. ?Stages 1 to 5, with or without kidney disease, indicate chronic kidney disease. Notes: Determination of stages one and two (with eGFR >59mL/min/1.73 m2) requires estimation of kidney damage for at least three months as defined by structural or functional abnormalities of the kidney, manifested by either:Pathological abnormalities or Markers of kidney damage (including abnormalities in the composition of the blood or urine or abnormalities in imaging tests). Lab Interpretation Abnormal (test code = 04530-2) [facility] [id number] 19:30:00 Test Item Value Reference Range Interpretation Comments APPEARANCE (test code = Clear Clear 3720552378) COLOR (test code = Yellow Yellow 8562668783) PH (test code = 4.8-8.0 3686180385) SP GRAVITY (test code = 1.003-1.030 0741011226) GLU U QUAL (test code = 500 mg/dL Normal A 8468646009) BLOOD (test code = Negative Negative 2795328945) KETONES (test code = Negative Negative 9138680640) PROTEIN (test code = Negative Negative 2887-8) UROBILIN (test code = Normal Normal 2413390683) BILIRUBIN (test code = Negative Negative 4200256894) NITRITE (test code = Negative Negative 1961168509) LEUK BIN (test code = Negative Negative 4000372155) RBC/HPF (test code = See_Comment [Autom ated message] 5113383689) The system [employer] generated this result transmit paulino reference range : 0 - 3 HPF. The refe rence range was not u sed to interpret th is result as normal/abnormal . WBC/HPF (test code = See_Comment [Autom ated message] 4734435092) The system [employer] generated this result transmit paulino reference range : 0 - 5 HPF. The refe rence range was not u sed to interpret th is result as normal/abnormal . BACTERIA (test code = Negative Negative 8505972151) MUCOUS (test code = Slight Negative LPF A 0068800204) SQ EPITH (test code = <1 HPF 9214172605) HYAL CAST (test code = See_Comment H [Aut omated message] 6977974710) The system [employer] generated this result transmit paulino reference range : <=2 LPF. The refere nce range was not u sed to interpret th is result as normal/abnormal . Lab Interpretation (test Abnormal code = 26627-4) [facility] [id number] 19:20:00 Test Item Value Reference Range Interpretation Comments PH (test code = 7.32-7.42 8142377651) PCO2 MARGARET (test code = See_Comment L [Auto mated message] 1227808743) The system [employer] generated this result transmitted ref erence range: 41 - 51 mmHg. The reference r eddy was not used to interpret this result as normal/abnor mal. PO2 MARGARET (test code = See_Comment H [Autom ated message] 8005510595) The system [employer] generated this result transmitted ref erence range: 25 - 40 mmHg. The reference r eddy was not used to interpret this result as normal/abnor mal. HCO3 MARGARET (test code = See_Comment L [Auto mated message] 3866563420) The system [employer] generated this result transmitted ref erence range: 24 - 28 mEq/L. The reference r eddy was not used to interpret this result as normal/abnor mal. AC VBE(BEAKER) (test mEq/L code = 8202722390) Lab Interpretation (test Abnormal code = 80774-7) [facility] WITH [id number] 19:20:00 Test Item Value Reference Range Interpretation Comments WBC (test code = See_Comment [Automated 6690-2) message] The sy stem which generated this result transmitted reference range : 4.20 - 10.70 10*3/?L. The reference range was not used to interpret this result as normal/abnormal . RBC (test code = See_Comment [Automated 789-8) message] The sy stem which generated this result transmitted reference range : 4.26 - 5.52 10*6/?L. The reference range was not used to interpret this result as normal/abnormal . HGB (test code = 13.1 g/dL 12.2-16.4 718-7) HCT (test code = 38.1 % 38.4-49.3 L 4544-3) MCV (test code = 86.2 fL 81.7-95.6 787-2) MCH (test code = 29.6 pg 26.1-32.7 785-6) MCHC (test code = 34.4 g/dL 31.2-35 786-4) RDW-SD (test code = 40.6 fL 38.5-51.6 40123-0) RDW-CV (test code = 13.2 % 12.1-15.4 788-0) PLT (test code = See_Comment [Automated 777-3) message] The sy stem which generated this result transmitted reference range : 150 - 328 10*3/ ?L. The reference r eddy was not used to interpret this result as normal/abnormal . MPV (test code = 11.7 fL 9.8-13 56782-3) NRBC/100 WBC (test See_Comment [Automat ed code = 2860615191) message] The system which generated this result transmitted reference range : 0.0 - 10.0 /100 WBCs. The refer ence range was not u sed to interpret th is result as normal/abnormal . NRBC x10^3 (test code <0.01 See_Comment [Auto mated = 2394432105) message] The s ystem which generated this result transmitted reference range : 10*3/?L. The reference range was not used to interpret this result as normal/abnormal . GRAN MAT (NEUT) % 76.3 % (test code = 770-8) IMM GRAN % (test code 0.40 % = 5056566730) LYMPH % (test code = 13.7 % 736-9) MONO % (test code = 6.3 % 5905-5) EOS % (test code = 2.1 % 713-8) BASO % (test code = 1.2 % 706-2) GRAN MAT x10^3(ANC) 5.92 10*3/uL 1.99-6.95 (test code = 8432051381) IMM GRAN x10^3 (test 0.03 10*3/uL 0-0.06 code = 2038173945) LYMPH x10^3 (test code 1.06 10*3/uL 1.09-3.23 L = 731-0) MONO x10^3 (test code 0.49 10*3/uL 0.36-1.02 = 742-7) EOS x10^3 (test code = 0.16 10*3/uL 0.06-0.53 711-2) BASO x10^3 (test code 0.09 10*3/uL 0.01-0.09 = 704-7) Lab Interpretation Abnormal (test code = 72084-4) [facility] GLUCOSE(AGE >30DAYS)2019-06-22 19:11:00 Test Item Value Reference Range Interpretation Comments POCT Glu (age>30days) (test code = HI 70-110 3342) Lab Interpretation (test code = Normal 08102-1) [facility] [id number] 17:37:17 HISTORY: Back pain. COMPARISON: Prior study of 01/29/2016. TECHNIQUE: AP x2, lateral, swimmer's x2 views are submitted of the thoracicspines. FINDINGS: No compression fracture or aggressive bone lesionsdetected.Osteophytes are seen along the ventral and lateral vertebral margins atlower thoracic levels. No paravertebral soft tissue swelling. Minimal midthoracic dextroscoliosis noted. 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 [facility], Radiant Results Inft User - 12/25/2018 12:39 PM CDTHISTORY: Back pain.COMPARISON: Prior study of 01/29/2016.TECHNIQUE: AP x2, lateral, swimmer's x2 views are submitted of the thoracicspines.FINDINGS: No compression fracture or aggressive bone lesions detected.Osteophytes are seen along the ventral and lateral vertebral margins atlower thoracic levels. No paravertebral soft tissue swelling. 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 [facility]
[2023-02-06] MEDS ORDERED: SILVER NITRATE 1 APPL TOP ONE (00:40)
--- NOTE | 2023-02-06 01:29 | ER ---
Nurse's Notes [facility] Name: Eva Ortega Age: 62 yrs Sex: Male : 1960 Arrival Date: 02/06/2023 Time: 00:06 Bed 14 Private MD: Sterling Harper E Diagnosis: Open wound of thigh;Disruption of wound, not elsewhere classified-blood clot removal and wound hemostasis Presentation: 02/06 00:40 Chief complaint: Patient states: "I had some skin tags removed on Monday by Dr. miguel Garrison and yesterday since about 1929 they haven't stopped bleeding". Coronavirus screen: At this time, the client does not indicate any symptoms associated with coronavirus-19. Ebola Screen: No symptoms or risks identified at this time. Initial Sepsis Screen: Does the patient meet any 2 criteria? No. Patient's initial sepsis screen is negative. Does the patient have a suspected source of infection? No. Patient's initial sepsis screen is negative. Risk Assessment: Do you want to hurt yourself or someone else? Patient reports no desire to harm self or others. Onset of symptoms was February 05, 2023 at 19:30. 00:40 Method Of Arrival: Ambulatory as6 00:40 Acuity: CHARLIE 3 as6 Historical: - Allergies: 00:42 No Known Allergies; as6 - PMHx: 00:42 CAD; COPD; Diabetes - IDDM; High Cholesterol; Hypertension; Arthritis; as6 - PSHx: 00:42 eye; Stented artery; knee; skin tag; as6 - Immunization history:: Adult Immunizations up to date. - Social history:: Smoking status: Patient reports the use of cigarette tobacco products, smokes two packs cigarettes per day. Screenin:43 [facility] ED Fall Risk Assessment (Adult) Score/Fall Risk Level 0 - 2 = Low Risk. Abuse as6 screen: Denies threats or abuse. Denies injuries from another. Nutritional screening: No deficits noted. Tuberculosis screening: No symptoms or risk factors identified. Assessment: 01:34 General: Appears in no apparent distress. Behavior is calm, cooperative. Pain: as6 Complains of pain in buttocks. Neuro: Level of Consciousness is awake, alert, obeys commands, Oriented to person, place, time, situation. Cardiovascular: Capillary refill < 3 seconds Patient's skin is warm and dry. Respiratory: Respiratory effort is even, unlabored, Respiratory pattern is regular, symmetrical. GI: No deficits noted. No signs and/or symptoms were reported involving the gastrointestinal system. : No deficits noted. No signs and/or symptoms were reported regarding the genitourinary system. EENT: No deficits noted. No signs and/or symptoms were reported regarding the EENT system. Derm: Wound noted perineum Wound is concave, bleeding, slough noted. Musculoskeletal: Circulation, motion, and sensation intact. Vital Signs: 00:40 BP 133 / 78; Pulse 68; Resp 18 S; Temp 98.1(TE); Pulse Ox 100% on R/A; Weight 126.1 kg as6 (R); Height 6 ft. 0 in. (R); Pain 3/10; 01:35 BP 105 / 74; Pulse 64; Resp 18 S; Pulse Ox 100% on R/A; as6 00:40 Body Mass Index 37.70 (126.10 kg, 182.88 cm) as6 00:40 Pain Scale: Adult as6 ED Course: 00:08 Patient arrived in ED. mr 00:09 Sterling Harper MD is Private Physician. mr 00:17 [facility]arnestine [facility]C [facility]. snw 00:17 Sotero Baird MD is Attending Physician. snw 00:18 Johann Foreman, LOVELY is Primary Nurse. as6 00:26 Arm band placed on. as6 00:42 Triage completed. as6 00:43 Placed in gown. Bed in low position. Call light in reach. Side rails up X 1. as6 01:23 Colby Garrison MD is Referral Physician. snw 01:33 Provided Education on: follow up, wound care. as6 01:33 No provider procedures requiring assistance completed. Patient did not have IV access as6 during this emergency room visit. Administered Medications: 01:33 Drug: Hibiclens Topical Liquid 4 % 1 application Topical once Route: Topical; Site: as6 affected area; :33 Follow up: Response: No adverse reaction as6 Medication: 01:33 VIS not applicable for this client. as6 Outcome: :28 Discharge ordered by . snw 01:33 Discharged to home ambulatory, as6 01:33 Condition: stable 01:33 Discharge instructions given to patient, Instructed on discharge instructions, follow up and referral plans. wound care, Demonstrated understanding of instructions, follow-up care, wound care, 01:36 Patient left the ED. as6 Signatures: Earnestine Cruz FNP-C FNP-Tracy Patrick, Reg Reg Johann Sinclair, RN RN as6
--- NOTE | 2023-02-06 01:29 | EDPHYS ---
Physician Documentation [facility] Name: Eva Ortega Age: 62 yrs Sex: Male : 1960 Arrival Date: 02/06/2023 Time: 00:06 Bed 14 Private MD: Sterling Harper E ED Physician Sotero Baird HPI: 02/06 01:54 This 62 yrs old Male presents to ER via Ambulatory with complaints of Skin tag Bleeding.snw 01:54 Patient presents to ED for recheck of: bleeding surgical wound. The affected area is on snw the posterior perineum. Progress: The patient reports decreased bleeding. The patient has not experienced similar symptoms in the past. Surgical removal of large condyloma by Dr. Garrison on Monday (6 days ago). Historical: - Allergies: 00:42 No Known Allergies; as6 - PMHx: 00:42 CAD; COPD; Diabetes - IDDM; High Cholesterol; Hypertension; Arthritis; as6 - PSHx: 00:42 eye; Stented artery; knee; skin tag; as6 - Immunization history:: Adult Immunizations up to date. - Social history:: Smoking status: Patient reports the use of cigarette tobacco products, smokes two packs cigarettes per day. ROS: 01:42 Constitutional: Negative for fever, chills, and weight loss, Eyes: Negative for injury, snw pain, redness, and discharge, ENT: Negative for injury, pain, and discharge, Neck: Negative for injury, pain, and swelling, Cardiovascular: Negative for chest pain, palpitations, and edema, Respiratory: Negative for shortness of breath, cough, wheezing, and pleuritic chest pain, Abdomen/GI: Negative for abdominal pain, nausea, vomiting, diarrhea, and constipation, Back: Negative for injury and pain, MS/Extremity: Negative for injury and deformity, Neuro: Negative for headache, weakness, numbness, tingling, and seizure, Psych: Negative for depression, anxiety, suicide ideation, homicidal ideation, and hallucinations, 01:42 Skin: Positive for wound bleed, blood clot, Exam: 01:42 Constitutional: This is a well developed, well nourished patient who is awake, alert, snw and in no acute distress. Head/Face: Normocephalic, atraumatic. Eyes: Pupils equal round and reactive to light, extra-ocular motions intact. Lids and lashes normal. Conjunctiva and sclera are non-icteric and not injected. Cornea within normal limits. Periorbital areas with no swelling, redness, or edema. ENT: Nares patent. No nasal discharge, no septal abnormalities noted. Tympanic membranes are normal and external auditory canals are clear. Oropharynx with no redness, swelling, or masses, exudates, or evidence of obstruction, uvula midline. Mucous membranes moist. Neck: Trachea midline, no thyromegaly or masses palpated, and no cervical lymphadenopathy. Supple, full range of motion without nuchal rigidity, or vertebral point tenderness. No Meningismus. Chest/axilla: Normal chest wall appearance and motion. Nontender with no deformity. No lesions are appreciated. Cardiovascular: Regular rate and rhythm with a normal S1 and S2. No gallops, murmurs, or rubs. Normal PMI, no JVD. No pulse deficits. Respiratory: Lungs have equal breath sounds bilaterally, clear to auscultation and percussion. No rales, rhonchi or wheezes noted. No increased work of breathing, no retractions or nasal flaring. Abdomen/GI: Soft, non-tender, with normal bowel sounds. No distension or tympany. No guarding or rebound. No evidence of tenderness throughout. Back: No spinal tenderness. No costovertebral tenderness. Full range of motion. MS/ Extremity: Pulses equal, no cyanosis. Neurovascular intact. Full, normal range of motion. Neuro: Awake and alert, GCS 15, oriented to person, place, time, and situation. Cranial nerves II-XII grossly intact. Motor strength 5/5 in all extremities. Sensory grossly intact. Cerebellar exam normal. Normal gait. Psych: Awake, alert, with orientation to person, place and time. Behavior, mood, and affect are within normal limits. 01:42 Skin: Appearance: scaly, thickened, dry skin diffusely, area to posterior perineum with post surgical wound that was scooped out diffusely. The right posterior thigh with large hematoma over wound with bleeding around wound. scooped proximal wound that was partially black and spongy is without bleeding. Left thigh with scooped out area with moist rotted cauliflower appearance, no bleeding, Vital Signs: 00:40 BP 133 / 78; Pulse 68; Resp 18 S; Temp 98.1(TE); Pulse Ox 100% on R/A; Weight 126.1 kg as6 (R); Height 6 ft. 0 in. (R); Pain 3/10; 01:35 BP 105 / 74; Pulse 64; Resp 18 S; Pulse Ox 100% on R/A; as6 00:40 Body Mass Index 37.70 (126.10 kg, 182.88 cm) as6 00:40 Pain Scale: Adult as6 MDM: 00:18 Patient medically screened. snw 01:36 Differential diagnosis:. snw 01:36 Differential diagnosis: bleeding, infection. Data reviewed: vital signs, nurses notes. snw Management of patient was discussed with the following: Dr. Garrison, large condyloma removed and wound bed had been bovied to eschar. Pack and send to office in the am. Counseling: I had a detailed discussion with the patient and/or guardian regarding the historical points, exam findings, and any diagnostic results supporting the discharge/admit diagnosis, the need for outpatient follow up, a general surgeon. Response to treatment: the patient's symptoms have markedly improved after treatment. Special discussion: Based on the history and exam findings, there is no indication for further emergent testing or inpatient evaluation. I discussed with the patient/guardian the need to see the general surgeon for further evaluation of the symptoms. ED course: wound cleansed, blood clots removed, hemostasis maintained, surgicel placed, moist 4x4 packed, covered with abd pad and brief placed.. 02/06 01:23 Order name: [facility]. Order: surgicel x3; Complete Time: snw 02/06 01:23 Order name: Dressing - Wound; Complete Time: snw 02/06 01:23 Order name: Gloves, Sterile; Complete Time: snw 02/06 01:23 Order name: Setup Suture Tray; Complete Time: snw Administered Medications: :33 Drug: Hibiclens Topical Liquid 4 % 1 application Topical once Route: Topical; Site: as6 affected area; :33 Follow up: Response: No adverse reaction as6 Disposition: 01:44 Co-signature as Attending Physician, Sotero Baird MD I agree with the assessment and kdr plan of care. Disposition Summary: 02/06/23 01:28 Discharge Ordered Notes: Location: Home snw Condition: Stable snw Diagnosis - Open wound of thigh snw - Disruption of wound, not elsewhere classified - blood clot removal and wound snw hemostasis Followup: snw - With: Colby Garrison MD - When: Tomorrow - Reason: Recheck today's complaints, Continuance of care, Re-evaluation by your physician Discharge Instructions: - Discharge Summary Sheet snw - Wound Care, Adult snw - Surgical Wound Debridement snw - Wound Packing snw Forms: - Medication Reconciliation Form snw - Thank You Letter snw - Antibiotic Education snw - Prescription Opioid Use snw - Patient Portal Instructions snw - Leadership Thank You Letter snw Signatures: Sotero Baird MD MD kdr Waters, Shelly, BROACHING MACHINE OPERATOR-C BROACHING MACHINE OPERATOR-Csnw Johann Foreman, RN RN as6
[2023-02-06 01:50] VITALS: TEMP 98.1; O2SAT 100
[2023-02-06 01:51] VITALS: BP 105/74
== END 2023-02-06 01:36 | disposition home or self-care (01) ==
LOC: ER 00:06
DX: T81.31XA Disruption of external operation (surgical) wound, not elsewhere classified, initial encounter (principal); S71.102A Unspecified open wound, left thigh, initial encounter; S71.101A Unspecified open wound, right thigh, initial encounter; F17.210 Nicotine dependence, cigarettes, uncomplicated
CPT/HCPCS: 99283

== ENCOUNTER 2024-01-03 08:42 | Emergency (ER) | payer OTHER ==
--- OUTSIDE RECORDS SUMMARY | 2024-01-03 08:47 | XMS REPORT | Continuity of Care Document ---
Author Name Unknown Address [address] [facility] [address] [place] [address] [facility] thconnect Address [address] [facility] [address] [place] [address] Care Team Providers Care Director Of Informatics Name Role Phone Sterling Harper Primary Care Physician [phone] Sterling Harper Attending Clinician Unavailable Tico Viera Attending Clinician Unavailable , [facility] Sleep Lab Bed Attending Clinician Unavail able Lianna Moy MD Attending Clinician + [phone] LIANNA MOY Attending Clinician UnavailLIANNA Lai Attending Clinician Unavaila jazmin Doctor Unassigned, [place] Attending Clinician U navailable Juan Harper Attending Clinician Unavailable Russ Cool Attending Clinician Unavailabl e TICO VIERA Attending Clinician Unavailable LAXMI CLINE Attending Clinician Unavailable Bubba MURRY, Jong Obrien Attending Clinician Unavail able [place] Attending Clinician Unavailable Erma Cruz Attending Clinician [phone] Smooth Parks MD Attending Clinician [phone] Radiology Attending Clinician Unavailable Tico Viera Admitting Clinician Unavailable Russ Cool Admitting Clinician UnavailTICO Hirsch Admitting Clinician Unavailable Jv Garcia Admitting Clinician Unavailable LAXMI CLINE Admitting Clinician Unavailable [place] Admitting Clinician Unavailable Smooth Parks MD Admitting Clinician Payers Payer Name Policy Type Policy Number Effective Date Expirati on Date Source HIM ZAK FROM [facility] [id number] 2019 00:00:00 Problems Condition Name Condition Details Condition Category Status Onset Date Resolution Date Last Treatment Date Treating Clinician Comments Source Coronary artery disease involving [place] coronary artery of [place] heart with angina pectoris Coronary artery disease involving [place] coronary artery of [place] heart with angina pectoris Disease Active 09-22 00:00: 00 [facility] Acute on chronic diastolic congestive heart failure Acute on chronic diastolic congestive heart failure Disease Active 09-22 00:00: 00 [facility] Essential hypertensi on Essential hypertensi on Disease Active 09-22 00:00: 00 [facility] Other hyperlipid emia Other hyperlipid emia Disease Active 09-22 00:00: 00 [facility] Type 2 diabetes mellitus without complicati on, without long-term current use of insulin Type 2 diabetes mellitus without complicati on, without long-term current use of insulin Disease Active 09-22 00:00: 00 [facility] DUSTIN (obstructi ve sleep apnea) DUSTIN (obstructi ve sleep apnea) Disease Active 6 00:00: 00 [facility] Acute kidney injury (CLAIRE) with acute tubular necrosis (ATN) Acute kidney injury (CLAIRE) with acute tubular necrosis (ATN) Disease Active 3- 00:00: 00 [facility] Hyperglyce isadora Hyperglyce isadora Disease Active 2-29 00:00: 00 [facility] Chest pain Chest pain Disease Active 9- 00:00: 00 [facility] Other chest pain Other chest pain Disease Active 2016-04 0-08 00:00: 00 [facility] Unstable angina Unstable angina Disease Active 2016-04 0-07 00:00: 00 [facility] Obesity (BMI 30-39.9) Obesity (BMI 30-39.9) Disease Active 2016-04 0 00:00: 00 [facility] Knee pain, left Knee pain, left Disease Active 08-31 00:00: 00 [facility] Knee pain, left Knee pain, left Disease Active 08-31 00:00: 00 [facility] Allergies, Adverse Reactions, Alerts Allergy Name Allergy Type Status Severity Reaction(s) Onset Date Inactive Date Treating Clinician Comments Source No Known Allergie s DA Active U 01-07 00:00: 00 [facility] No Known Allergie s DA Active U 2016-04 0 00:00: 00 [facility] NO KNOWN ALLERGIE S Drug Class Active [facility] Social History Social Habit Start Date Stop Date Quantity Comments Source History of tobacco use Cigarette Smoker [facility] Exposure to SARS-CoV-2 (event) 2022-08-13 00:00:00 2022-08-23 02:23:00 Not sure [facility] Alcohol intake 2019-06-22 00:00:00 2019-06-22 00:00:00 Current non-drinker of alcohol (finding) [facility] Tobacco use and exposure 2017-01-28 00:00:00 2017-01-28 00:00:00 Smokeless tobacco non-user [facility] Cigarettes smoked current (pack per day) - Reported 2017-01-28 00:00:00 2017-01-28 00:00:00 [facility] Cigarette pack-years 2017-01-28 00:00:00 2017-01-28 00:00:00 [facility] Alcohol Comment 2009-04-07 00:00:00 2009-04-07 00:00:00 quit drinking [facility] Sex Assigned At 1960 00:00:00 1960 00:00:00 [facility] Smoking Status Start Date Stop Date Source Smokes tobacco daily 2017-01-28 00:00:00 [facility] Medications Ordered Medication Name Filled Medication Name Start Date Stop Date Current Medication? Ordering Clinician Indication Dosage Frequency Signature (SIG) Comments Components Source aspirin 81 mg chewable tablet 09-23 00:00: 00 Yes [id number] 81mg Take 1 tablet by mouth daily. [facility] tamsulosin 0.4 mg 24 hr capsule 09-22 14:28: 29 Yes .4mg Take 0.4 mg by mouth daily. [facility] metFORMIN 500 mg tablet 09-22 14:28: 29 Yes 500mg Take 500 mg by mouth 2 (two) times daily with meals. [facility] insulin aspart prot/insuln asp (NOVOLOG MIX 70-30FLEXPE N U-100 SC) 09-22 14:28: 29 Yes inject under the skin 2 (two) times daily with meals. [facility] benazepril- hydrochlort hiazide 20-25 mg per tablet 09-22 00:00: 00 Yes [id number] 1{tbl} Take 1 tablet by mouth daily. [facility] carvediloL 12.5 mg tablet 09-22 00:00: 00 Yes [id number] 12.5mg Take 1 tablet by mouth 2 (two) times daily. [facility] isosorbide mononitrate 60 mg 24 hr tablet 09-22 00:00: 00 Yes [id number] 60mg Take 1 tablet by mouth daily. [facility] tamsulosin 0.4 mg 24 hr capsule 06-23 18:15: 44 Yes .4mg Take 0.4 mg by mouth daily. [facility] metFORMIN (GLUCOPHAGE ) tablet 500 mg 06-23 14:00: 00 Yes 500mg 500 mg, Oral, BID MEALS, First dose on Mon06/24/19 at 0800, Until Discontinu ed, Routine [facility] glyBURIDE 5 mg tablet 06-23 00:00: 00 07-24 04:59 :00 No [id number] 5mg Take 1 tablet by mouth 2 (two) times daily with meals for 30 days. [facility] metFORMIN 500 mg tablet 06-23 00:00: 07-24 04:59 :00 No [id number] 500mg Take 1 tablet by mouth 2 (two) times daily with meals for 30 days. [facility] NaCl 0.9% (NS) IV infusion 1,000 mL 06-22 23:45: 00 Yes 1000mL at 75 mL/hr, IV Infusion, CONTINUOUS , Starting 06/23/19 at 1745, Until Discontinu ed, Routine [facility] clopidogreL (PLAVIX) tablet 75 mg 06-22 15:00: 00 Yes 75mg 75 mg, Oral, DAILY, First dose on 06/23/19 at 0900, Until Discontinu ed, Routine [facility] glyBURIDE (DIABETA) tablet 5 mg 06-22 14:30: 00 Yes 5mg 5 mg, Oral, BID MEALS, First dose on 06/23/19 at 0830, Until Discontinu ed, Routine [facility] gabapentin (NEURONTIN) tablet 600 mg 06-22 14:00: 00 Yes 600mg 600 mg, Oral, TID, First dose on 06/23/19 at 0800, Until Discontinu ed, Routine [facility] carvediloL (COREG) tablet 6.25 mg 06-22 14:00: 00 Yes 6.25mg 6.25 mg, Oral, BID, First dose on 06/23/19 at 0800, Until Discontinu ed, Routine [facility] cetirizine (ZYRTEC) tablet 5 mg 06-22 06:15: 00 06-22 05:20 :00 No 5mg 5 mg, Oral, ONCE, 1 dose, 06/23/19 at 0015, Routine [facility] fluticasone propion-lamar meterol (ADVAIR) 250-50 mcg/dose inhalation disk 1 Puff 06-22 05:15: 00 Yes 1{puff} 1 Puff, Inhalation , Q12H, First dose on 06/22/19 at 2315, Until Discontinu ed, Routine
Use approved by (Faculty and pager): ADC PROVIDER [facility] tamsulosin (FLOMAX) capsule 0.4 mg 06-22 05:15: 00 Yes .4mg 0.4 mg, Oral, DAILY, First dose on 06/22/19 at 2315, Until Discontinu ed, Routine [facility] pravastatin (PRAVACHOL) tablet 80 mg 06-22 05:15: 00 Yes 80mg 80 mg, Oral, QHS, First dose on 06/22/19 at 2315, Until Discontinu ed, Routine [facility] nitroglycer in (NITROSTAT) sublingual tablet 0.4 mg 06-22 04:59: 35 Yes .4mg 0.4 mg, Sublingual , Q5MIN PRN, Starting 06/22/19 at 2259, Until Discontinu ed, Routine, Chest pain [facility] ipratropium -albuterol (DUONEB) 0.5 mg-3 mg(2.5 mg base)/3 mL nebulizer solution 3 mL 06-22 04:52: 22 Yes 3mL 3 mL, Inhalation , QIDPRN, Starting 06/22/19 at 2252, Until Discontinu ed, Routine, Wheezing, Shortness of Breath [facility] nicotine (NICODERM) 21 mg/24 hr patch 1 Patch 06-22 03:45: 00 Yes 1{patch } 1 Patch, Topical, Administer over 24 Hours, Q24H, First dose on 06/22/19 at 2145, Until Discontinu ed, Routine [facility] insulin regular human (HUMULIN R) injection 10 Units 06-22 00:00: 00 23:37 :00 No 10U 10 Units, Subcutaneo us, ONCE, 1 dose, 06/22/19 at 1800, Routine [facility] Sliding Scale Insulin - Aspart (NOVOLOG) + Fsbg Testing 23:00: 00 Yes Subcutaneo us, TID MEALS+HS, First dose on 06/22/19 at 1700, Until Discontinu ed, [facility] 0.9% (NS) IV infusion 1,000 mL 22:45: 00 06-22 23:33 :30 No 1000mL at 125 mL/hr, IV Infusion, CONTINUOUS , Starting 06/22/19 at 1645, Until 06/23/19 at 1733, Routine [facility] ondansetron (ZOFRAN (PF)) injection 4 mg 22:42: 59 Yes 4mg 4 mg, Slow IV Push, Q6HPRN, Starting 06/22/19 at 1642, Until Discontinu ed, Routine, Nausea and Vomiting (N/V) [facility] acetaminoph en (TYLENOL) tablet 650 mg 22:42: 54 Yes 650mg 650 mg, Oral, Q6HPRN, Starting 06/22/19 at 1642, Until Discontinu ed, Routine, Pain (scale 1-3) [facility] insulin regular human (HUMULIN R) injection 10 Units 21:00: 00 20:13 :00 No 10U 10 Units, Slow IV Push, ONCE, 1 dose, 06/22/19 at 1500, Routine [facility] NaCl 0.9% (NS) bolus infusion 1,000 mL 20:15: 00 19:12 :00 No 1000mL at 999 mL/hr, 1,000 mL, IV Infusion, ONCE, 1 dose, 06/22/19 at 1415, STAT [facility] NaCl 0.9% (NS) bolus infusion 1,000 mL 20:00: 00 19:38 :00 No 1000mL at 999 mL/hr, 1,000 mL, IV Infusion, ONCE, 1 dose, 06/22/19 at 1400, STAT [facility] tamsulosin 0.4 mg 24 hr capsule 12 00:36: 00 Yes .4mg Take 0.4 mg by mouth daily. [facility] fluticasone -salmeterol 250-50 mcg/dose inhalation disk 2016-04 00:00: 00 Yes 1{puff} Inhale 1 Puff every 12 (twelve) hours. [facility] nitroglycer in 0.4 mg sublingual tablet 2016-04 00:00: [address] 1 tablet under the tongue every 5 (five) minutes as needed for Chest pain. [facility] fluticasone -salmeterol 250-50 mcg/dose inhalation disk 2016-04 00:00: 00 Yes 1{puff} Inhale 1 Puff every 12 (twelve) hours. [facility] albuterol (VENTOLIN HFA) 90 mcg/actuati on inhaler 2016-04 00:00: 00 Yes 2{puff} Inhale 2 Puffs every 6 (six) hours as needed for Wheezing or Shortness of Breath. [facility] diclofenac 75 mg EC tablet 09-02 00:00: 00 Yes 75mg Take 1 tablet by mouth 2 (two) times daily with meals. [facility] clopidogrel 75 mg tablet 06-16 00:00: 00 Yes 75mg Take 75 mg by mouth daily. [facility] glyBURIDE 5 mg tablet 06-16 00:00: 00 06-23 00:00 :00 No 5mg 5 mg daily with breakfast. [facility] gabapentin 600 mg tablet 06-09 00:00: 00 Yes 600mg Take 600 mg by mouth 2 (two) times daily. [facility] PRAVASTATIN 40 MG ORAL TAB 09-08 00:00: 00 Yes take 2 tabs qd [facility] COREG 6.25 MG ORAL TAB 09-08 00:00: 00 Yes 1 tab PO BID [facility] BENAZEPRIL 20 MG ORAL TAB 09-08 00:00: 00 Yes 1 tab PO daily [facility] METFORMIN 500 MG ORAL TAB 09-08 00:00: 00 06-23 00:00 :00 No 1 tab PO BID [facility] Vital Signs Vital Name Observation Time Observation Value Comments S hollie Systolic blood pressure 2019-06-24 17:00:00 108 mm[Hg] [facility] Diastolic blood pressure 2019-06-24 17:00:00 80 mm[Hg] [facility] Heart rate 2019-06-24 17:00:00 67 /min [facility] Body temperature 2019-06-24 17:00:00 36.17 Michela [facility] Respiratory rate 2019-06-24 17:00:00 16 /min [facility] Oxygen saturation in Arterial blood by Pulse oximetry 2019-06-24 17:00:00 99 /min [facility] Body weight 2019-06-22 20:45:00 127.461 kg [facility] BMI 2019-06-22 20:45:00 38.11 kg/m2 [facility] Systolic blood pressure 2019-06-24 17:00:00 108 mm[Hg] [facility] Diastolic blood pressure 2019-06-24 17:00:00 80 mm[Hg] [facility] Heart rate 2019-06-24 17:00:00 67 /min [facility] Body temperature 2019-06-24 17:00:00 36.17 Michela [facility] Respiratory rate 2019-06-24 17:00:00 16 /min [facility] Oxygen saturation in Arterial blood by Pulse oximetry 2019-06-24 17:00:00 99 /min [facility] Body weight 2019-06-22 20:45:00 127.461 kg [facility] BMI 2019-06-22 20:45:00 38.11 kg/m2 [facility] Procedures Procedure Date / Time Performed Performing Clinician Source SLEEP STUDY DATA REPORT 2022-08-22 05:01:00 Doct or Unassigned, [place] [facility] EXTERNAL PROVIDER RECORDS 2022-06-22 06:01:00 Doctor Unassigned, [place] [facility] POCT GLUCOSE (AUTOMATED) 2019-06-24 13:37:00 Smooth Parks [facility] BASIC METABOLIC PANEL (NA, K, CL, CO2, GLUCOSE, BUN, CREATININE, CA) 2019-06-24 09:02:00 Laxmi Cline [facility] POCT GLUCOSE (AUTOMATED) 2019-06-24 01:18:00 Smooth Parks [facility] POCT GLUCOSE (AUTOMATED) 2019-06-23 21:23:00 Smooth Parks [facility] POCT GLUCOSE (AUTOMATED) 2019-06-23 17:02:00 Charly [facility] POCT GLUCOSE (AUTOMATED) 2019-06-23 14:47:00 Charly [facility] POCT GLUCOSE (AUTOMATED) 2019-06-23 11:08:00 hCarly [facility] MAGNESIUM 2019-06-23 10:29:00 Smooth Parks [facility] TROPONIN I 2019-06-23 10:29:00 [facility] METABOLIC PANEL (NA, K, CL, CO2, GLUCOSE, BUN, CREATININE, CA) 2019-06-23 10:29:00 Glenda [facility] CBC WITH DIFFERENTIAL 2019-06-23 10:29:00 Charly [facility] POCT GLUCOSE (AUTOMATED) 2019-06-23 06:56:00 Charly [facility] XR CHEST 1 VW 2019-06-23 03:42:[facility]06[facility]23 03:26[facility] PAN[facility] (NA, K, CL, CO2, GLUCOSE, BUN, CREATININE, CA) 2019-06-23 03:26:00 Charly [facility] POCT GLUCOSE (AUTOMATED) 2019-06-23 03:09:00 Charly [facility] BASIC METABOLIC PANEL (NA, K, CL, CO2, GLUCOSE, BUN, CREATININE, CA) 2019-06-23 00:35:00 Charly [facility] POCT GLUCOSE (AUTOMATED) 2019-06-22 23:36:00 Charly [facility] POCT GLUCOSE (AUTOMATED) 2019-06-22 20:50:00 Charly [facility] POCT GLUCOSE (AUTOMATED) 2019-06-22 20:10:00 Erma Zheng [facility] NOTICE OF PRIVACY PRACTICES 2019-06-22 19:51:59 Doctor Unassigned, [place] [facility] EKG-12 LEAD 2019-06-22 19:27:52 [facility] TROPONIN I 2019-06-22 19:11:00 Erma Zheng Magdalene [facility] COMP. METABOLIC PANEL ([id number]) 2019-06-22 19:11:00 Erma Zheng [facility] ACUTE CARE VENOUS BLOOD GAS 2019-06-22 19:11:00 Erma Zheng [facility] CBC WITH DIFFERENTIAL 2019-06-22 19:11:00 Tracy Zheng [facility] GLYCOSYLATED HEMOGLOBIN (A1C) 2019-06-22 19:11:00 Smooth Parks [facility] URINALYSIS 2019-06-22 19:11:00 [facility] POCT GLUCOSE(AGE >30DAYS) 2019-06-22 19:11:00 Erma Zheng [facility] EKG-12 LEAD 2019-06-22 18:51:31 [facility] POCT GLUCOSE (AUTOMATED) 2019-06-22 18:44:00 Norm Erma [facility] CONSENT/REFUSAL FOR DIAGNOSIS AND TREATMENT 2019-06-22 18:38:35 Doctor Unassigned, [place] [facility] XR SPINE THORACIC 2 VW 2018-12-25 17:26:28 Harper Will maame E [facility] ASSIGNMENT OF BENEFITS 2018-12-25 16:54:00 Docto r Unassigned, [place] [facility] Encounters Start Date/Time End Date/Time Encounter Type Admission Type Attending [facility] Facility Care Department Encounter ID Source 2023-11-29 10:17:01 Outpatient Sterling Harper [facility] [id number] [facility] 2021-04-07 10:00:00 Inpatient SALEEM Kenneth Tico [facility] [id number] [facility] 2022-08-22 20:00:00 2022-08-22 22:30:00 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, [facility] Sleep Lab Bed Lianna Moy [place] 1.2.840.114 350.1.13.10 4.2.7.2.686 [id number] [facility] 2022-08-22 20:00:00 2022-08-22 20:00:00 Outpatient LIANNA SINGLETARY STRAHIL [facility] [id number] [facility] 2022-08-22 00:00:00 2022-08-22 00:00:00 Orders Only Doctor Unassigned, [place] [facility] [id number] 350.1.13.10 4.2.7.2.686 [id number] [facility] 2022-06-22 00:00:00 2022-06-22 00:00:00 Orders Only Doctor Unassigned, [place] [facility] 1.2.840.114 350.1.13.10 4.2.7.2.686 [id number] [facility] 2022-06-17 12:56:00 2022-06-17 12:56:00 Outpatient Tico Viera [facility] [id number] [facility] 2021-08-06 12:36:00 2021-08-06 12:36:00 Outpatient Juan Uriarte [facility] [id number] [facility] 2021-03-02 08:40:00 2021-03-03 09:13:00 Inpatient Hilton Reyesory [facility] [id number] [facility] 2021-01-26 10:30:00 2021-01-26 09:19:00 Inpatient TICO MOORE [facility] [id number] [facility] 2021-01-12 09:00:00 2021-01-12 09:00:00 Outpatient SilvinaRuss [facility] [id number] [facility] 2021-01-08 09:00:00 2021-01-08 08:22:00 Inpatient SALEEM SilvinaRuss [facility] [id number] [facility] 2019-09-22 18:10:26 2019-09-23 14:25:00 Outpatient LAXMI [facility] [id number] [facility] 2019-06-25 00:00:00 2019-06-25 00:00:00 Transition of Care Jong Mac 1.2.840.114 350.1.13.10 4.2.7.2.686 [id number] [facility] 2019-06-25 00:00:00 2019-06-25 00:00:00 Transition of Care Jong Mac 1.2.840.114 350.1.13.10 4.2.7.2.686 [id number] 2019-06-22 12:49:29 2019-06-24 11:48:00 Inpatient X [facility] [id number] [facility] 2019-06-22 12:49:2019-06-24 11:48:00 Hospital Encounter Erma Zheng [facility] 1.2.840.114 350.1.13.10 4.2.7.2.686 [id number] [facility] 2019-06-22 12:49:29 2019-06-24 11:48:00 Hospital Encounter Erma Zheng [facility] 1.2.840.114 350.1.13.10 4.2.7.2.686 [id number] 2019-06-22 00:00:00 2019-06-22 00:00:00 Orders Only Doctor Unassigned, [place] [facility] 1.2.840.114 350.1.13.10 4.2.7.2.686 [id number] [facility] 2019-06-22 00:00:00 2019-06-22 00:00:00 Orders Only Doctor Unassigned, [place] [facility] 1.2.840.114 350.1.13.10 4.2.7.2.686 [id number] 2018-12-25 11:55:23 2018-12-25 23:59:00 Hospital Encounter [facility] 1.2.840.114 350.1.13.10 4.2.7.2.686 [id number] [facility] 2018-12-25 11:55:23 2018-12-25 23:59:00 Hospital Encounter Radiology [facility] 1.2.840.114 350.1.13.10 4.2.7.2.686 [id number] 2018-12-25 00:00:00 2018-12-25 00:00:00 Orders Only Doctor Unassigned, [place] [facility] 1.2.840.114 350.1.13.10 4.2.7.2.686 [id number] [facility] 2018-12-25 00:00:00 2018-12-25 00:00:00 Orders Only Doctor Unassigned, [place] [facility] 1.2.840.114 350.1.13.10 4.2.7.2.686 [id number] Results Test Description Test Time Test Comments Results Resul t Comments Source - CT LD LUNG CA SCREENING 2021-08-06 14:50:00 [facility] 1960 Sex: M Patient Name: EVA ORTEGA Unit No: [id number] EXAMS: CPT CODE: [id number] CT LD LUNG CA SCREENING 43535 EXAM: Screening CT chest without contrast (low [...] Reported and signed by: Ino Odom MD [facility] NAME: EVA ORTEGA [address] [place] [address] PHYS: [place] [address] : 1960 AGE: 61 SEX: M LOC: Z.ZCTS PHONE #: [phone] EXAM DATE: 08/06/2021 STATUS: REG CLI FAX #: [phone] RAD #: D/C DT PAGE 1 Signed Report (CONTINUED) Patient Name: EVA ORTEGA Unit No: [id number] EXAMS: CPT CODE: [id number] CT LD LUNG CA SCREENING 50427 (Continued) CC: Tico WALDRON Technologist: Nae Archuleta, RT(R) CTDI: DLP: Trnscrpt: 08/06/2021 (1450) [id number] [place] [facility] NAME: EVA ORTEGA [address] [facility] [address] PHYS: [facility] [place] [address] : 1960 AGE: 61 SEX: M LOC: DIVYA PHONE #: [phone] EXAM DATE: 08/06/2021 STATUS: REG CLI FAX #: [phone] RAD #: D/C DT PAGE 2 Signed Report Patient Name: EVA ORTEGA Unit No: [id number] EXAMS: CPT CODE: [id number] CT LD LUNG CA SCREENING 80109 (Continued) Orig Print D/T: S: 08/06/2021 (1449) [facility] NAME: EVA ORTEGA [address] [facility] [address] PHYS: [place] [address] : 1960 AGE: 61 SEX: M LOC: DIVYA PHONE #: [phone] EXAM DATE: 08/06/2021 STATUS: REG CLI FAX #: [phone] RAD #: D/C DT PAGE 3 Signed Report CBC W/AUTO [id number] 05:41:00* Test Item Value Reference Range Interpretation Comme nts WHITE BLOOD CELL (test code = WBC) 6.2 K/MM3 3.8-9.8 N RED BLOOD CELL (test code = RBC) 4.06 M/MM3 3.95-5.67 N HEMOGLOBIN (test code = HGB) 11.6 G/DL 12.4-16.7 L HEMATOCRIT (test code = HCT) 36.8 % 35.9-49.5 N MEAN CELL VOLUME (test code = MCV) 91 fL 81.7-96.1 N MEAN CELL HGB (test code = MCH) 28.6 pg 27.6-33.2 N MEAN CELL HGB CONCETRATION (test code = MCHC) 31.5 % 32.9-35.5 L RED CELL DISTRIBUTION WIDTH (test code = RDW) 14.2 % 12.1-15.2 N PLATELET COUNT (test code = PLT) 190 K/MM3 129-368 N MEAN PLATELET VOLUME (test c ode = MPV) 10.9 fl 7.4-10.4 H NEUTROPHIL % (test code = NT%) 63.4 % 43-75 N IMMATURE GRANULOCYTE % (test code = IG%) 0.2 % 0.0-2.0 N LYMPHOCYTE % (test code = LY%) 22.1 % 14-44 N MONOCYTE % (test code = MO%) 9.0 % 4-13 N EOSINOPHIL % (test code = EO%) 4.5 % 0-6 N BASOPHIL % (test code = BA%) 0.8 % 0-2 N NUCLEATED RBC % (test code = NRBC%) 0.0 % 0-1.0 N NEUTROPHIL # (test code = NT#) 3.96 K/mm3 2.0-7.6 N IMMATURE GRANULOCYTE # (test code = IG#) 0.01 x10 3/uL 0-0.03 N LYMPHOCYTE # (test code = LY#) 1.38 K/mm3 1.0-3.8 N MONOCYTE # (test code = MO#) 0.56 K/mm3 0.1-0.8 N EOSINOPHIL # (test code = EO#) 0.28 K/mm3 0.0-0.2 H BASOPHIL # (test code = BA#) 0.05 K/mm3 0.0-0.2 N NUCLEATED RBC # (test code = NRBC#) 0.00 K/mm3 0.0-0.1 N GLUCOSE BEDSIDE [id number] 20:00:00* Test Item Value Reference Range Interpretation Comme nts GLUCOSE BEDSIDE TESTING (mariel t code = GLUBED) 302 MG/DL 60-99 GLUCOSE BEDSIDE [id number] 16:19:00* Test Item Value Reference Range Interpretation Comme nts GLUCOSE BEDSIDE TESTING (mariel t code = GLUBED) 346 MG/DL 60-99 GLUCOSE BEDSIDE [id number] 11:59:00* Test Item Value Reference Range Interpretation Comme nts GLUCOSE BEDSIDE TESTING (mariel t code = GLUBED) 265 MG/DL 60-99 H PROTHROMBIN [id number] 07:22:00* Test Item Value Reference Range Interpretation Comme nts PROTHROMBIN TIME PATIENT (test code = PTP) 11.2 SECONDS 9.5-12.7 N INTERNATIONAL NORMAL RATIO (test code = INR) 1.0 0.86-1.14 N The INR is to be used only for monitoring oral anticoagulanttherap y. INDICATION INR VALUE -------1. Prophylaxis, deep venous thrombosis, including high risk surgery. 2.0 - 3.0 2. Prophylaxis, deep venous thrombosis, hip surgery, treatment for deep venous thrombosis or pulmonary prevention of systemic embolism in patients with valvular heart disease, atrial fibrillation, tissue heart valve, or acute myocardial infarction. 2.0 - 3.0 3. Mechanical prosthesis heart valves, recurrent systemic embolism. 3.0 - 4.5 PTT [id number] 07:22:00* Test Item Value Reference Range Interpretation Comme nts PTT ACTIVATED (test code = APTT) 29.6 SECONDS 25.1-36.5 N BASIC METABOLIC [id number] 07:19:00* Test Item Value Reference Range Interpretation Comme nts SODIUM (test code = NA) 140 MMOL/L 137-145 N POTASSIUM (test code = K) 4.1 MMOL/L 3.5-5.1 N CHLORIDE (test code = CL) 95 MMOL/L 98-107 L CARBON DIOXIDE (test code = CO2) 34 MMOL/L 22-30 H GLUCOSE (test code = GLU) 254 MG/DL 74-106 H BLOOD UREA NITROGEN (test code = BUN) 27 MG/DL 9-20 H GLOMERULAR FILTRATION RATE (test code = GFR) > 60 Reporting units: ml/min/1.73 m2 (Modified MDRD Formula)Reference Range: > or = 60 ml/min/1.73 m2 CREATININE (test code = CREAT) 1.10 MG/DL 0.66-1.25 N CALCIUM (test code = CA) 9.7 MG/DL 8.4-10.2 N Is this a LINE draw? [id number] 07:19:00* Test Item Value Reference Range Interpretation Comme nts MAGNESIUM (test code = MAG) 1.3 MG/DL 1.6-2.3 L Is this a LINE draw? NCBC W/AUTO [id number] 07:09:00* Test Item Value Reference Range Interpretation Comme nts WHITE BLOOD CELL (test code = WBC) 6.7 K/MM3 3.8-9.8 N RED BLOOD CELL (test code = RBC) 4.34 M/MM3 3.95-5.67 N HEMOGLOBIN (test code = HGB) 12.5 G/DL 12.4-16.7 N HEMATOCRIT (test code = HCT) 40.0 % 35.9-49.5 N MEAN CELL VOLUME (test code = MCV) 92 fL 81.7-96.1 N MEAN CELL HGB (test code = MCH) 28.8 pg 27.6-33.2 N MEAN CELL HGB CONCETRATION (test code = MCHC) 31.3 % 32.9-35.5 L RED CELL DISTRIBUTION WIDTH (test code = RDW) 14.1 % 12.1-15.2 N PLATELET COUNT (test code = PLT) 219 K/MM3 129-368 N MEAN PLATELET VOLUME (test c ode = MPV) 10.8 fl 7.4-10.4 H NEUTROPHIL % (test code = NT%) 67.7 % 43-75 N IMMATURE GRANULOCYTE % (test code = IG%) 0.3 % 0.0-2.0 N LYMPHOCYTE % (test code = LY%) 19.6 % 14-44 N MONOCYTE % (test code = MO%) 7.8 % 4-13 N EOSINOPHIL % (test code = EO%) 3.9 % 0-6 N BASOPHIL % (test code = BA%) 0.7 % 0-2 N NUCLEATED RBC % (test code = NRBC%) 0.0 % 0-1.0 N NEUTROPHIL # (test code = NT#) 4.54 K/mm3 2.0-7.6 N IMMATURE GRANULOCYTE # (test code = IG#) 0.02 x10 3/uL 0-0.03 N LYMPHOCYTE # (test code = LY#) 1.31 K/mm3 1.0-3.8 N MONOCYTE # (test code = MO#) 0.52 K/mm3 0.1-0.8 N EOSINOPHIL # (test code = EO#) 0.26 K/mm3 0.0-0.2 H BASOPHIL # (test code = BA#) 0.05 K/mm3 0.0-0.2 N NUCLEATED RBC # (test code = NRBC#) 0.00 K/mm3 0.0-0.1 N Is this a LINE draw? NCOVID 19 Asymptomatic IH [id number] 06:35:00* Test Item Value Reference Range Interpretation Comme nts COVID 19 Asymptomatic IH AG (test code = COVNONPUIAG) NEGATIVE Negative "Negative result s from patients with symptom onset beyondfive days, should be treated as presumptive, andconfirmation with a molecular assay, if necessary forpatient management may be performed. Negative results do notrule out COVID-19 and should not be used as the sole basisfor treatment or patient management decisions, includinginfection control decisions. Negative results should beconsidered in the context of a patients recent exposures,history, and the presence of clinical signs and symptomsconsistent with COVID-19.This test detects both viable andnon-viable SARS-CoV and SARS CoV-2.Test performance dependson the amount of virus (antigen) in the sample." - CT LD LUNG CA [id number] 14:57:00 [facility] 1960 Sex: M Patient Name: EVA ORTEGA Unit No: [id number] EXAMS: CPT CODE: [id number] CT LD LUNG CA SCREENING 33388 EXAM: Screening CT chest without contrast (low dose) LOCATION: B2 INDICATION: Lung cancer screening TECHNIQUE: Axial 2.5 mm images of the chest were obtained using low-dose CT technique, with sagittal and coronal reformats. This exam was performed according to our departmental dose-optimiza tion program, which includes automated exposure control, adjustment [...] heart is normal in size. Coronary artery calcif ications are present. 0.9 cm hypodense left thyroid [...] Reported and signed by: Ino Odom MD [facility] NAME: EVA ORTEGA [address] [address] PHYS: [place] [address] : 1960 AGE: 60 SEX: M LOC: RaimundoZISAURA PHONE #: [phone] EXAM DATE: 01/26/2021 STATUS: REG CLI FAX #: [phone] RAD #: D/C DT PAGE 1 Signed Report (CONTINUED) Patient Name: EVA ORTEGA Unit No: [id number] EXAMS: CPT CODE: [id number] CT LD LUNG CA SCREENING 88392 (Continued) CC: Tico WALDRON Technologist: Nae Archuleta, RT(R) CTDI: DLP: Trnscrpt: 01/26/2021 (1457) t.SDR.PR7 [facility] NAME: EVA ORTEGA [address] [facility] PHYS: [place] [address] : [birth year] AGE: 60 SEX: M LOC: JoselinCTS PHONE #: [phone] EXAM DATE: 01/26/2021 STATUS: REG CLI FAX #: [phone] RAD #: D/C DT PAGE 2 Signed Report Patient Name: EVA ORTEGA Unit No: [id number] EXAMS: CPT CODE: [id number] CT LD LUNG CA SCREENING 16594 (Continued) Orig Print D/T: S: 01/26/2021 (1636) [facility] NAME: EVA ORTEGA [address] [facility] PHYS: [place] [address] : 1960 AGE: 60 SEX: M LOC: RaimundoZCTS PHONE #: [phone] EXAM DATE: 01/26/2021 STATUS: REG CLI FAX #: [phone] RAD #: D/C DT PAGE 3 Signed Report- NM MYOCRD SPECT R/S [id number] 18:16:00 [facility] : 1960 Sex: M Patient Name: EVA ORTEGA Unit No: [id number] EXAMS: CPT CODE: [id number] NM MYOCRD SPECT R/SMULT 28125 INDICATION: Unstable angina. The patient underwent myocardial perfusion imaging utilizing IV injection of 29.9 mCi Tc99M Cardiolite at rest and IV injection of 32.5 mCi Tc99M Cardiolite atpeak stress. SPECT imaging was obtained at rest [...] Russ Cool M.D. CC: Russ Cool Technologist: Isatu Sebastian, RT(R)(M); Katharina Collins RT(N) Transcrpt Date/Tm/Trnsp: 01/12/2021 (1815) andres XIONGGSP Orig Print D/T: S: 01/12/2021 (1818) [facility] NAME: EVA ORTEGA [id number] [place] [address] PHYS: [place] [address] : 1960 AGE: 60 SEX: M LOC: RaimundoZNUC PHONE #: [phone] EXAM DATE: 01/08/2021 STATUS: DEP CLI FAX #: [phone] RADIOLOGY NO: PAGE 1 Signed ReportPOCT GLUCOSE (AUTOMATED) 2019-06-24 16:34:00* Test Item Value Reference Range Interpretation Comme nts POCT GLU (test code = 2801598696) >600 70-110 HH Lab Interpretation (test cod e = 44330-5) Abnormal [facility] GLUCOSE (AUTOMATED)2019-06-24 16:34:00* Test Item Value Reference Range Interpretation Comme nts POCT GLU (test code = 0647428106) >600 70-110 HH Lab Interpretation (test cod e = 13746-6) Abnormal [facility] GLUCOSE (AUTOMATED)2019-06-24 13:51:00* Test Item Value Reference Range Interpretation Comme nts POCT GLU (test code = 8123333392) 266 mg/dL 70-110 H Lab Interpretation (test cod e = 53215-6) Abnormal [facility] Metabolic Panel (NA, K, CL, CO2, GLUCOSE, BUN, CREATININE, CA)2019-06-24 11:45:00* Test Item Value Reference Range Interpretation Comme nts NA (test code = 4876982557) 137 mmol/L 135-145 K (test code = 1727829467) 4.3 mmol/L 3.5-5 CL (test code = 5422205637) 105 mmol/L 98-108 CO2 TOTAL (test code = 9397344213) 26 mmol/L 23-31 AGAP (test code = 4235804464) 2-16 BUN (test code = 2793997228) 29 mg/dL 7-23 H GLUCOSE (test code = 7998810408) 270 mg/dL 70-110 H CREATININE (test code = 5588234813) 1.13 mg/dL 0.6-1.25 CALCIUM (test code = 3827710707) 9.1 mg/dL 8.6-10.6 eGFR Calculation (Non-) (test code = 0975775703) mL/min/1.73m2 eGFR Calculation () (test code = 6841431259) mL/min/1.73m2 JULI (test code = JULI) Association of [...] or abnormalities in imaging tests). Lab Interpretation (test code = 76192-3) Abnormal [facility] GLUCOSE (AUTOMATED)2019-06-24 01:40:00* Test Item Value Reference Range Interpretation Comme nts POCT GLU (test code = 8294346837) 271 mg/dL 70-110 H Lab Interpretation (test cod e = 53699-3) Abnormal [facility] GLUCOSE (AUTOMATED)2019-06-23 21:55:00* Test Item Value Reference Range Interpretation Comme nts POCT GLU (test code = 4000111455) 211 mg/dL 70-110 H Lab Interpretation (test cod e = 71237-9) Abnormal [facility] GLUCOSE (AUTOMATED)2019-06-23 17:43:00* Test Item Value Reference Range Interpretation Comme nts POCT GLU (test code = 0514730424) 324 mg/dL 70-110 H Lab Interpretation (test cod e = 12865-6) Abnormal [facility] GLUCOSE (AUTOMATED)2019-06-23 14:50:00* Test Item Value Reference Range Interpretation Comme nts POCT GLU (test code = 1755964959) 362 mg/dL 70-110 H Lab Interpretation (test cod e = 26972-1) Abnormal [facility] GLUCOSE (AUTOMATED)2019-06-23 13:55:00* Test Item Value Reference Range Interpretation Comme nts POCT GLU (test code = 9831399448) 276 mg/dL 70-110 H Lab Interpretation (test cod e = 45115-1) [facility] [id number] 11:18:00* Test Item Value Reference Range Interpretation Comme nts TROPONIN I (test code = 7030233761) 0.007 ng/mL See_Comment [Automated message] The system which generated this result transmitted reference range: <=0.034. The reference range was not used to interpret this result as normal/abnormal. JULI (test code = JULI) Equal or Less than 0.034 ng/ml---Normal ?Note: Cardiac troponin begins to [...] patient's use of biotin. ? Lab Interpretation (test code = 24318-2) Normal [facility] GLU[facility]SE (AUTOMATED)2019-06-23 11:11:00* Test Item Value Reference Range Interpretation Comme nts POCT GLU (test code = 5271553911) 184 mg/dL 70-110 H Lab Interpretation (test cod e = 21509-5) Abnormal [facility]ervilleMagnesium [id number] 11:07:00* Test Item Value Reference Range Interpretation Comme nts MAGNESIUM (test code = 7250182694) 1.6 mg/dL 1.7-2.4 L Lab Interpretation (test cod e = 60836-5) [facility]normal [facility] Met[facility] (NA, K, CL, CO2, GLUCOSE, BUN, CREATININE, CA)2019-06-23 11:07:00* Test Item Value Reference Range Interpretation Comme nts NA (test code = 3139891561) 136 mmol/L 135-145 K (test code = 6440381130) 4.1 mmol/L 3.5-5 CL (test code = 8154932448) 102 mmol/L 98-108 CO2 TOTAL (test code = 3780491160) 25 mmol/L 23-31 AGAP (test code = 8834265581) 2-16 BUN (test code = 8169494623) 32 mg/dL 7-23 H GLUCOSE (test code = 5842355038) 162 mg/dL 70-110 H CREATININE (test code = 4631098082) 1.34 mg/dL 0.6-1.25 H CALCIUM (test code = 3298984596) 9.0 mg/dL 8.6-10.6 eGFR Calculation (Non-) (test code = 1875156977) mL/min/1.73m2 eGFR Calculation () (test code = 4996677144) mL/min/1.73m2 JULI (test code = JULI) Association of [...] or abnormalities in imaging tests). Lab Interpretation (test code = 34848-4) Abnormal [facility] WITH [id number] 11:07:00* Test Item Value Reference Range Interpretation Comme nts WBC (test code = 6690-2) See_Comment [Automated messa ge] The system which generated this result transmitted reference range: 4.20 - 10.70 10*3/?L. The reference range was not used to interpret this result as normal/abnormal. RBC (test code = 789-8) See_Comment L [Automated messa ge] The system which generated this result transmitted reference range: 4.26 - 5.52 10*6/?L. The reference range was not used to interpret this result as normal/abnormal. HGB (test code = 718-7) 12.4 g/dL 12.2-16.4 HCT (test code = 4544-3) 37.1 % 38.4-49.3 L MCV (test code = 787-2) 87.3 fL 81.7-95.6 MCH (test code = 785-6) 29.2 pg 26.1-32.7 MCHC (test code = 786-4) 33.4 g/dL 31.2-35 RDW-SD (test code = 26677-7) 41.5 fL 38.5-51.6 RDW-CV (test code = 788-0) 13.2 % 12.1-15.4 PLT (test code = 777-3) See_Comment [Automated messa ge] The system which generated this result transmitted reference range: 150 - 328 10*3/?L. The reference range was not used to interpret this result as normal/abnormal. MPV (test code = 12019-8) 11.3 fL 9.8-13 NRBC/100 WBC (test code = 0690059445) See_Comment [Automated YesGraph ssage] The system which generated this result transmitted reference range: 0.0 - 10.0 /100 WBCs. The reference range was not used to interpret this result as normal/abnormal. NRBC x10^3 (test code = 6175124431) <0.01 See_Comment [Automated messa ge] The system which generated this result transmitted reference range: 10*3/?L. The reference range was not used to interpret this result as normal/abnormal. GRAN MAT (NEUT) % (test code = 770-8) 56.6 % IMM GRAN % (test code = 4731703979) 0.00 % LYMPH % (test code = 736-9) 29.4 % MONO % (test code = 5905-5) 7.8 % EOS % (test code = 713-8) 5.2 % BASO % (test code = 706-2) 1.0 % GRAN MAT x10^3(ANC) (test code = 8909890498) 3.48 10*3/uL 1.99-6.95 IMM GRAN x10^3 (test code = 2185572973) <0.03 0-0.06 LYMPH x10^3 (test code = 731-0) 1.81 10*3/uL 1.09-3.23 MONO x10^3 (test code = 742-7) 0.48 10*3/uL 0.36-1.02 EOS x10^3 (test code = 711-2) 0.32 10*3/uL 0.06-0.53 BASO x10^3 (test code = 704-7) 0.06 10*3/uL 0.01-0.09 Lab Interpretation (test code = 79539-2) [facility]normal [facility]2019-06-23 07:00:00* Test Item Value Reference Range Interpretation Comme nts POCT GLU (test code = 3699907709) 105 mg/dL 70-110 Lab Interpretation (test cod e = 76981-0) Normal [facility]ervilleTROPONIN [id number] 06:15:00* Test Item Value Reference Range Interpretation Comme nts TROPONIN I (test code = 8410398758) 0.009 ng/mL See_Comment [Automated message] The system which generated this result transmitted reference range: <=0.034. The reference range was not used to interpret this result as normal/abnormal. JULI (test code = JULI) Equal or Less than 0.034 ng/ml---Normal ?Note: Cardiac troponin begins to [...] patient's use of biotin. ? Lab Interpretation (test code = 76080-7) Normal [facility] (NA, K, CL, CO2, GLUCOSE, BUN, CREATININE, CA)2019-06-23 04:07:00* Test Item Value Reference Range Interpretation Comme nts NA (test code = 7691802378) 134 mmol/L 135-145 L K (test code = 4372620990) 4.3 mmol/L 3.5-5 CL (test code = 1271885153) 101 mmol/L 98-108 CO2 TOTAL (test code = 7731258038) 26 mmol/L 23-31 AGAP (test code = 5289072597) 2-16 BUN (test code = 7930991178) 39 mg/dL 7-23 H GLUCOSE (test code = 4519901710) 242 mg/dL 70-110 H CREATININE (test code = 4897166237) 1.57 mg/dL 0.6-1.25 H CALCIUM (test code = 9391765047) 9.3 mg/dL 8.6-10.6 eGFR Calculation (Non-) (test code = 3990097881) mL/min/1.73m2 eGFR Calculation () (test code = 5596467195) mL/min/1.73m2 JULI (test code = JULI) Association of [...] or abnormalities in imaging tests). Lab Interpretation (test code = 03634-6) Abnormal [facility]ervilleXR CHEST 1 [id number] 04:04:48No acute intrathoracic abnormality.PROCEDURE: XR CHEST 1 VW CLINICAL INDICATION: chest pain COMPARISON: 09/27/2018 FINDINGS: The lungs are partial expanded and clear. Perihilar vessels are mildlyprominent. No pleural effusion or pneumothorax is seen. The cardiomediastinal silhouette is normal. No acute bony abnormality. Nvmb, Radiant Results Inft User - 06/22/2019 10:05 PM CSTPROCEDURE: XR CHEST 1 V WCLINICAL INDICATION: chest pain COMPARISON: 09/27/2018FINDINGS:The lungs are partial expanded and clear. Perihilar vessels are mildlyprominent. No pleural effusion or pneumothorax is seen. The cardiomediastinal silhouette is normal. No acute bony abnormality.IMPRESSIONNo acute intrathoracic abnormality.[facility] METABOLIC PANEL (NA, K, CL, CO2, GLUCOSE, BUN, CREATININE, CA)2019-06-23 02:02:00* Test Item Value Reference Range Interpretation Comme nts NA (test code = 5837019538) 132 mmol/L 135-145 L K (test code = 8517430412) 4.7 mmol/L 3.5-5 CL (test code = 5656408636) 98 mmol/L 98-108 CO2 TOTAL (test code = 8036040736) 25 mmol/L 23-31 AGAP (test code = 1561463879) 2-16 BUN (test code = 3985976548) 40 mg/dL 7-23 H GLUCOSE (test code = 0927538581) 448 mg/dL 70-110 H CREATININE (test code = 1415789449) 1.83 mg/dL 0.6-1.25 H CALCIUM (test code = 7305680778) 9.1 mg/dL 8.6-10.6 eGFR Calculation (Non-) (test code = 3607606984) mL/min/1.73m2 eGFR Calculation () (test code = 0266582797) mL/min/1.73m2 JULI (test code = JULI) Association of [...] or abnormalities in imaging tests). Lab Interpretation (test code = 73316-5) Abnormal [facility]ervilleGlycosylated Hemoglobin (A1C)2019-06-23 01:18:00* Test Item Value Reference Range Interpretation Comments HGB A1C (test code = 4548-4) See_Comment H [Automated message] The system which generated this result transmitted reference range: 4.0 - 6.0 % NGSP. The reference range was not used to interpret this result as normal/abnormal. JULI (test code = JULI) %A1C (NGSP) Interpretation (ADA)4.8-5.6 ? ? Normal or (Non-Diabetic Range)5.7-6.4 ? ? Increased Risk (Pre-Diabetic)>6.5 ?Diabetes Indicated Lab Interpretation (test code = 09461-1) Abnormal [facility] GLUCOSE (AUTOMATED)2019-06-22 23:41:00* Test Item Value Reference Range Interpretation Comme nts POCT GLU (test code = 1428398067) 504 mg/dL 70-110 Lab Interpretation (test cod e = 51262-6) Abnormal [facility] GLUCOSE (AUTOMATED)2019-06-22 22:13:00* Test Item Value Reference Range Interpretation Comme nts POCT GLU (test code = 2861877206) 495 mg/dL 70-110 Lab Interpretation (test cod e = 96551-5) Abnormal [facility]TROP[facility] [id number] 19:47:00* Test Item Value Reference Range Interpretation Comme nts TROPONIN I (test code = 6762697272) 0.007 ng/mL See_Comment [Automated message] The system which generated this result transmitted reference range: <=0.034. The reference range was not used to interpret this result as normal/abnormal. JULI (test code = JULI) Equal or Less than 0.034 ng/ml---Normal ?Note: Cardiac troponin begins to [...] patient's use of biotin. ? Lab Interpretation (test code = 23244-0) Normal [facility]ervilleCOMP. METABOLIC PANEL (78998)2019-06-22 19:45:00* Test Item Value Reference Range Interpretation Comme nts NA (test code = 4443040067) 127 mmol/L 135-145 L K (test code = 7026182194) 5.0 mmol/L 3.5-5 CL (test code = 6040429465) 93 mmol/L 98-108 L CO2 TOTAL (test code = 3599002443) 24 mmol/L 23-31 AGAP (test code = 7830732046) 2-16 BUN (test code = 6283029083) 40 mg/dL 7-23 H GLUCOSE (test code = 9497091166) 716 mg/dL 70-110 HH CREATININE (test code = 4858508502) 2.14 mg/dL 0.6-1.25 H TOTAL BILI (test code = 3490041435) 0.4 mg/dL 0.1-1.1 CALCIUM (test code = 1853323149) 9.1 mg/dL 8.6-10.6 T PROTEIN (test code = 5436544203) 6.9 g/dL 6.3-8.2 ALBUMIN (test code = 9102172980) 4.3 g/dL 3.5-5 ALK PHOS (test code = 0954254211) 106 U/L 34-122 ALTv (test code = 1742-6) 16 U/L 5-50 AST(SGOT) (test code = 9625272671) 19 U/L 13-40 eGFR Calculation (Non-) (test code = 7411087375) mL/min/1.73m2 eGFR Calculation () (test code = 4745199764) mL/min/1.73m2 JULI (test code = JULI) Association of [...] or abnormalities in imaging tests). Lab Interpretation (test code = 80471-0) Abnormal [facility] OozzgsUFVXDUDGIS7415-72-90 19:30:00* Test Item Value Reference Range Interpretation Comme nts APPEARANCE (test code = 6044044475) Clear Clear COLOR (test code = 5671168780) Yellow Yellow PH (test code = 7052975491) 4.8-8.0 SP GRAVITY (test code = 6404322583) 1.003-1.030 GLU U QUAL (test code = 0314046889) 500 mg/dL Normal A BLOOD (test code = 0378996260) Negative Negative KETONES (test code = 0345798381) Negative Negative PROTEIN (test code = 2887-8) Negative Negative UROBILIN (test code = 5957617203) Normal Normal BILIRUBIN (test code = 5083334798) Negative Negative NITRITE (test code = 3147414505) Negative Negative LEUK BIN (test code = 8280975181) Negative Negative RBC/HPF (test code = 6626599075) See_Comment [Automated messa ge] The system which generated this result transmitted reference range: 0 - 3 HPF. The reference range was not used to interpret this result as normal/abnormal. WBC/HPF (test code = 4159876946) See_Comment [Automated messa ge] The system which generated this result transmitted reference range: 0 - 5 HPF. The reference range was not used to interpret this result as normal/abnormal. BACTERIA (test code = 5394756709) Negative Negative MUCOUS (test code = 9369746267) Slight Negative LPF A SQ EPITH (test code = 7569431924) <1 HPF HYAL CAST (test code = 9491236826) See_Comment H [Automated messa ge] The system which generated this result transmitted reference range: <=2 LPF. The reference range was not used to interpret this result as normal/abnormal. Lab Interpretation (test code = 71376-4) Abnormal [facility] VENOUS BLOOD [id number] 19:20:00 * Test Item Value Reference Range Interpretation Comme nts PH (test code = 9132447617) 7.32-7.42 PCO2 MARGARET (test code = 2717024609) See_Comment L [Automated messa ge] The system which generated this result transmitted reference range: 41 - 51 mmHg. The reference range was not used to interpret this result as normal/abnormal. PO2 MARGARET (test code = 6100303213) See_Comment H [Automated messa ge] The system which generated this result transmitted reference range: 25 - 40 mmHg. The reference range was not used to interpret this result as normal/abnormal. HCO3 MARGARET (test code = 3332324619) See_Comment L [Automated messa ge] The system which generated this result transmitted reference range: 24 - 28 mEq/L. The reference range was not used to interpret this result as normal/abnormal. AC VBE(BEAKER) (test code = 6147387395) mEq/L Lab Interpretation (test code = 46359-7) Abnormal [facility] WITH [id number] 19:20:00* Test Item Value Reference Range Interpretation Comme nts WBC (test code = 6690-2) See_Comment [Automated messa ge] The system which generated this result transmitted reference range: 4.20 - 10.70 10*3/?L. The reference range was not used to interpret this result as normal/abnormal. RBC (test code = 789-8) See_Comment [Automated messa ge] The system which generated this result transmitted reference range: 4.26 - 5.52 10*6/?L. The reference range was not used to interpret this result as normal/abnormal. HGB (test code = 718-7) 13.1 g/dL 12.2-16.4 HCT (test code = 4544-3) 38.1 % 38.4-49.3 L MCV (test code = 787-2) 86.2 fL 81.7-95.6 MCH (test code = 785-6) 29.6 pg 26.1-32.7 MCHC (test code = 786-4) 34.4 g/dL 31.2-35 RDW-SD (test code = 08638-2) 40.6 fL 38.5-51.6 RDW-CV (test code = 788-0) 13.2 % 12.1-15.4 PLT (test code = 777-3) See_Comment [Automated messa ge] The system which generated this result transmitted reference range: 150 - 328 10*3/?L. The reference range was not used to interpret this result as normal/abnormal. MPV (test code = 64274-8) 11.7 fL 9.8-13 NRBC/100 WBC (test code = 2772531517) See_Comment [Automated [employer] ssage] The system which generated this result transmitted reference range: 0.0 - 10.0 /100 WBCs. The reference range was not used to interpret this result as normal/abnormal. NRBC x10^3 (test code = 6345189404) <0.01 See_Comment [Automated messa ge] The system which generated this result transmitted reference range: 10*3/?L. The reference range was not used to interpret this result as normal/abnormal. GRAN MAT (NEUT) % (test code = 770-8) 76.3 % IMM GRAN % (test code = 2736086798) 0.40 % LYMPH % (test code = 736-9) 13.7 % MONO % (test code = 5905-5) 6.3 % EOS % (test code = 713-8) 2.1 % BASO % (test code = 706-2) 1.2 % GRAN MAT x10^3(ANC) (test code = 6404030460) 5.92 10*3/uL 1.99-6.95 IMM GRAN x10^3 (test code = 3609111719) 0.03 10*3/uL 0-0.06 LYMPH x10^3 (test code = 731-0) 1.06 10*3/uL 1.09-3.23 L MONO x10^3 (test code = 742-7) 0.49 10*3/uL 0.36-1.02 EOS x10^3 (test code = 711-2) 0.16 10*3/uL 0.06-0.53 BASO x10^3 (test code = 704-7) 0.09 10*3/uL 0.01-0.09 Lab Interpretation (test code = 15177-1) [facility]normal [facility] >30DAYS[facility]2019-06-22 19:11:00* Test Item Value Reference Range Interpretation Comme nts POCT Glu (age>30days) (test code = 3342) HI 70-110 Lab Interpretation (test cod e = 28967-1) Normal [facility] 2 [id number] 17:37:17 HISTORY: Back pain. COMPARISON: Prior study of 01/29/2016. TECHNIQUE: AP x2, lateral, swimmer's x2 views are submitted of the thoracicspines. FINDINGS: No compression fracture or aggressive bone lesions detected.Osteophytes are seen along the ventral and lateral vertebral margins atlower thoracic levels. No paravertebral soft tissue swelling. Minimal midthoracic dextroscoliosis noted. 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 Nvmb, Radiant Results Inft User - 12/25/2018 12:39 [...] spines,essentially unchanged when compared with 01/28/2016 study. [facility] Notes Date/Time Note Provider Source 2021-03-03 06:24:00 [facility] ([facility] Cardiology Progress Note REPORT#:[id number] REPORT STATUS: Signed DATE:03/03/21 TIME: 623 PATIENT: EVA ORTEGA UNIT #: [id number] ROOM/BED: [address] : 62 AGE: 60 SEX: M ATTEND: Russ Cool MD ADM AUTHOR: Russ Cool MD * ALL edits or amendments must be made on the electronic/computer document * Subjective Chief Complaint: CAD Patient reports: No: chest pain, palpitations, shortness of breath. Objective General VS/I O: 24 hour I O ending at 0700: 03/03 0700 03/02 1900 Intake Total 300 Output Total Balance 300 Intake, Oral 300 Number Voids 1 Vital Signs: Date Time Temp Pulse Resp B/P B/P Pulse O2 O2 Flow FiO2 Mean Ox Delivery Rate 03/03 0527 97.7 60 19 104/69 80.4 93 03/03 0031 97.9 59 19 123/74 90.4 95 03/02 1846 98.1 67 19 128/75 92.4 93 03/02 1620 97.7 65 18 121/70 87.2 96 Room air 03/02 1156 97.7 60 17 123/87 99.1 98 Room air PATIENT WEIGHT: Weight (lb): Weight (oz): Weight (kg): Medications: Active Meds + DC'd Last 24 Hrs Atorvastatin Calcium (LIPITOR) 10 MG BEDTIME PO Aspirin (CHILDREN'S ASPIRIN) 81 MG DAILY PO Carvedilol (COREG) 25 MG DAILY PO Clopidogrel Bisulfate (PLAVIX) 75 MG DAILY PO Glyburide (MICRONASE, DIABETA) 5 MG DAILY PO Pioglitazone HCl (ACTOS) 15 MG DAILY PO Tamsulosin HCl (FLOMAX) 0.4 MG DAILY PO Gabapentin (NEURONTIN) 600 MG BID PO Insulin Human Lispro (HumaLOG) LOW DOSE SLIDING SCALE AC HS SUBQ Nicotine (NICODERM) 21 MG DAILY TRANSDERM (CKD) Dextrose/Water (DEXTROSE 50% IN WATER) 12.5 GM ASDIR PRN IV Dextrose/Water (DEXTROSE 50% IN WATER) 25 GM ASDIR PRN IV Nitroglycerin (NITROSTAT) 0.4 MG Q5M PRN PRN SL Hydrocodone Bitart/Acetaminophen (NORCO 5/325 TABLET (C-II)) 0 .STK-MED ONE .ROUTE (DC) Hydrocodone Bitart/Acetaminophen (NORCO 5/325 TABLET (C-II)) 1 TAB NOW ONE PO (DC) Sodium Chloride (SODIUM CHLORIDE 0.9%) 1,000 ML ONCE ONE IV (CAN) Magnesium Sulfate (MAG SULFATE 2GM PREMIX) 50 ML .STK-MED ONE IV (DC) Fentanyl Citrate (SUBLIMAZE (C-II)) 0 .STK-MED ONE .ROUTE (DC) Heparin Sodium (HEPARIN SODIUM) 0 .STK-MED ONE .ROUTE (DC) Heparin Sodium/Sodium Chloride (HEPARIN 1000 UNITS/NS 500ML) 1,000 ML .STK- MED ONE IV (DC) Iopamidol (ISOVUE-300) 0 .STK-MED ONE .ROUTE (DC) Lidocaine (XYLOCAINE 1%) 0 .STK-MED ONE .ROUTE (DC) Midazolam HCl (VERSED (C-IV)) 0 .STK-MED ONE .ROUTE (DC) Sodium Chloride (SODIUM CHLORIDE 0.9%) 1,000 ML Q13H IV Physical Exam General appearance: alert, awake, oriented Head/Eyes: atraumatic, normocephalic ENT: moist mucosal membranes Neck: no JVD Cardiovascular: CV assessment: regular rate and rhythm Respiratory: clear to auscultation, no distress Lower extremity: LE assessment: no edema Musculoskeletal: full range of motion 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: alert, oriented X 3, CN II-XII intact Skin: dry, intact Psychiatry: normal affect, normal judgment/insight, normal mood Results Findings/Data: Laboratory Tests 03/03 03/02 03/02 03/02 03/02 0458 1958 1617 1158 0657 Chemistry Sodium (137 - 145 MMOL/L) 136 L 140 Potassium (3.5 - 5.1 MMOL/L) 4.1 4.1 Chloride (98 - 107 MMOL/L) 96 L 95 L Carbon Dioxide (22 - 30 MMOL/L) 31 H 34 H Anion Gap (14 - 24 MMOL/L) 13 L BUN (9 - 20 MG/DL) 26 H 27 H Creatinine (0.66 - 1.25 MG/DL) 1.00 1.10 Glomerular Filtr Rate > 60 > 60 Glucose (74 - 106 MG/DL) 213 H 254 H POC Glucose (60 - 99 MG/DL) 302 *H 346 *H 265 H Calcium (8.4 - 10.2 MG/DL) 9.5 9.7 Magnesium (1.6 - 2.3 MG/DL) 1.3 L Laboratory Tests 03/02 0657 Coagulation INR (0.86 - 1.14) 1.0 APTT (25.1 - 36.5 SECONDS) 29.6 PT Patient/Control Mix (9.5 - 12.7 SECONDS) 11.2 Laboratory Tests 03/03 03/02 0458 0657 Hematology WBC (3.8 - 9.8 K/MM3) 6.2 6.7 RBC (3.95 - 5.67 M/MM3) 4.06 4.34 Hgb (12.4 - 16.7 G/DL) 11.6 L 12.5 Hct (35.9 - 49.5 %) 36.8 40.0 MCV (81.7 - 96.1 fL) 91 92 MCH (27.6 - 33.2 pg) 28.6 28.8 MCHC (32.9 - 35.5 %) 31.5 L 31.3 L RDW (12.1 - 15.2 %) 14.2 14.1 Plt Count (129 - 368 K/MM3) 190 219 MPV (7.4 - 10.4 fl) 10.9 H 10.8 H Neut % (Auto) (43 - 75 %) 63.4 67.7 Lymph % (Auto) (14 - 44 %) 22.1 19.6 [place] % (Auto) (4 - 13 %) 9.0 7.8 Eos % (Auto) (0 - 6 %) 4.5 3.9 Baso % (Auto) (0 - 2 %) 0.8 0.7 Neut # (Auto) (2.0 - 7.6 K/mm3) 3.96 4.54 Lymph # (Auto) (1.0 - 3.8 K/mm3) 1.38 1.31 [place] # (Auto) (0.1 - 0.8 K/mm3) 0.56 0.52 Eos # (Auto) (0.0 - 0.2 K/mm3) 0.28 H 0.26 H Baso # (Auto) (0.0 - 0.2 K/mm3) 0.05 0.05 Immature Gran % (0.0 - 2.0 %) 0.2 0.3 Nucleated RBC % (0 - 1.0 %) 0.0 0.0 Nucleated RBCs # (Man) (0.0 - 0.1 K/mm3) 0.00 0.00 Laboratory Tests 03/02 657 Chemistry Magnesium (1.6 - 2.3 MG/DL) 1.3 L Laboratory Tests 03/02 657 Coagulation APTT (25.1 - 36.5 SECONDS) 29.6 Diagnosis, Assessment Plan Free Text DxA P Notes Free Text DxA P Notes: IMP: CAD s/p LHC - patent LAD stent DM PLAN: d/c home f/u 3 months at 0817 [facility] #:[id number] END OF REPORT [facility] 2021-03-02 08:35:00 [id number] [address] PATIENT NAME: EVA ORTEGA ADMIT DATE: 03/02/21 ACCOUNT NO: [id number] [facility] 60 REPORT TYPE: CARDIAC CATHETERIZATION REPORT SEX: M ADMITTING PHYSICIAN:Russ Cool MD ATTENDING PHYSICIAN:Russ Cool MD PROCEDURE DATE: 03/02/2021 PROCEDURE NOTE PROCEDURES: 1. Left heart catheterization. 2. Selective coronary angiography. 3. Left ventriculography. 4. Right femoral arteriography. 5. Angio-Seal deployment. PREPROCEDURE DIAGNOSES: 1. Unstable angina. 2. Coronary artery disease, status post percutaneous transluminal coronary angioplasty and stent. 3. Diabetes. 4. Hypertension. POSTPROCEDURE DIAGNOSES: 1. Unstable angina. 2. Coronary artery disease, status post percutaneous transluminal coronary angioplasty and stent. 3. Diabetes. 4. Hypertension. WATER PUMPER: Russ Cool MD FOOD RUNNER: None. ANESTHESIA: Local anesthesia with 1% lidocaine and moderate sedation. PROCEDURE DETAILS: After informed consent was obtained explaining to the patient the risks, benefits, and alternatives, the patient was brought to the cardiac catheterization lab in the fasting postabsorptive state. He was prepped and draped in sterile fashion. Local anesthesia was applied over the right femoral artery with 1% lidocaine. Access to right femoral artery was obtained using modified Seldinger technique with a micropuncture kit. A 6-Martiniquais sheath was advanced over the wire into the right femoral artery. The sheath was aspirated and flushed. A 6-Martiniquais JL4 catheter was advanced over the wire and engaged the left main coronary artery. Multiple views of left coronary system were obtained. The JR4 catheter was exchanged for a 6-Martiniquais JR4 catheter, which was advanced over the wire and engaged the right coronary artery. PATIENT NAME: EVA ORTEGA Multiple views of the right coronary system were obtained. The JR4 catheter was exchanged for a 6-Martiniquais pigtail catheter, which was advanced over the wire and crossed the aortic valve. Left ventricular pressures were measured and recorded. Left ventriculogram was obtained. The pigtail catheter was reconnected to the pressure transducer and withdrawn over the aortic valve. The aortic pressures were measured and recorded. The pigtail catheter was removed. The sheath was aspirated and flushed. A right femoral arteriogram was obtained via the sheath. After confirmation of adequate placement of the sheath, a 6-Martiniquais Angio-Seal device was deployed without complications. The patient tolerated the procedure well with no complications. FINDINGS: 1. Left main -- no significant disease. 2. Left anterior descending, proximal mid stent. 3. Left circumflex, mild diffuse plaquing in the mid segment. 4. Right coronary artery -- dominant. A 40% mid stenosis. LEFT VENTRICULOGRAM: Overall, ejection fraction is approximately 70%. PRESSURES: Aortic pressure is 143/95. Left ventricular pressure is 142/34. CONCLUSIONS: 1. Mild nonobstructive coronary artery disease. 2. Patent LAD stent. 3. Hyperdynamic left ventricular systolic function. ESTIMATED BLOOD LOSS: Negligible. COMPLICATIONS: No complications. Dictated By: Russ Cool MD WT: CATH:MICHAEL/PEPALIZE/NTS Conf#: [id number]/DID#: [id number] Authenticated and Edited by Russ Cool MD On 03/02/21 1:19:31 PM at 0121 PATIENT NAME: EVA ORTEGA [facility] 2021-03-02 08:16:00 [id number] [place] [address] PATIENT NAME: EVA ORTEGA ADMIT DATE: 03/02/21 ACCOUNT NO: [id number] ROOM NO: 361 AGE: 60 REPORT TYPE: ELECTROCARDIOGRAM SEX: M ADMITTING PHYSICIAN:Russ Cool MD ATTENDING PHYSICIAN:Russ Cool MD Order: [id number] Test Reason : CAD Test Date/Time Stamp: MonMar 02 2021 08:16:04 Blood Pressure : / mmHG Vent. Rate : 070 BPM Atrial Rate : 070 BPM P-R Int : 158 ms QRS Dur : 094 ms QT Int : 396 ms P-R-T Axes : -18 050 053 degrees QTc Int : 427 ms Normal sinus rhythm Normal ECG When compared with ECG of 05-FEB-2017 11:19, T wave amplitude has decreased in Inferior leads QT has lengthened Confirmed by MD YONAS, NOEMI DAMICO ([id number]) on 03/03/2021 7:58:08 AM Referred By: Self Referred Confirmed by:NOEMI RAYMUNDO MD at 0758 PATIENT NAME: EVA ORTEGA [facility] 2021-01-26 10:41:00 [facility] ([facility]) Clinical Note REPORT#:[id number] REPORT STATUS: Signed DATE:01/26/21 TIME: 1041 PATIENT: EVA ORTEGA UNIT #: [id number] ROOM/BED: : 61 AGE: 60 SEX: M ATTEND: Tico Viera [facility] AUTHOR: Ofelia Whiting NP * ALL edits or amendments must be made on the electronic/computer document * Clinical Note Note: Name:Eva Ortega :1960 Ht: 6.0 ft Wt: 289 lbs Date: 01/26/2021 Time:10:00am Shared-Decision Making Visit - Reason for Visit: Lung cancer screening counseling and shared decision making visit. - Chief Complaint: The patient has a significant smoking history and is interested in learning more about screening. -Mr. Ortega reports a 2-3 ppd for 43 years history of smoking cigarettes. The patient is still an active smoker. The patient willingly participated in the consultation today for lung cancer screening and was open to receiving material on smoking cessation. The patient participated in a shared decision making session during which potential risks and benefits of CT lung screening were discussed. The patient was informed of the importance of adherence to annual screening, impact of comorbidities and ability/willingness to undergo diagnosis and treatment. The patient was informed of the importance of smoking cessation and/or maintaining smoking abstinence, including the offer of Medicare- covered tobacco cessation services, if applicable. The patient is asymptomatic (no symptoms such as fever, chest pain, new shortness of breath, new or changing cough, coughing up blood or unexplained weight loss. at 1044 at 7105 [facility] #:[id number] END OF REPORT HCAWU
--- NOTE | 2024-01-03 09:43 | ER ---
Nurse's Notes [facility] Name: Eva Ortega Age: 63 yrs Sex: Male : 1960 Arrival Date: 01/03/2024 Time: 08:42 Bed 2 Private MD: Diagnosis: Postprocedural hemorrhage of skin and subcutaneous tissue following other procedure Presentation: 01/02 08:50 Chief complaint: Patient states: Had skin CA removed from L side of head. Started ll1 bleeding last night and today after scratching site. No fever. Coronavirus screen: Client denies travel out of the [place] in the last 14 days. At this time, the client does not indicate any symptoms associated with coronavirus-19. Ebola Screen: Patient denies travel to an Ebola-affected area in the 21 days before illness onset. Initial Sepsis Screen: Does the patient meet any 2 criteria? No. Patient's initial sepsis screen is negative. Does the patient have a suspected source of infection? No. Patient's initial sepsis screen is negative. Risk Assessment: Do you want to hurt yourself or someone else? Patient reports no desire to harm self or others. Onset of symptoms was January 02, 2024. 08:50 Method Of Arrival: Ambulatory ll1 08:50 Acuity: CHARLIE 3 ll1 Historical: - Allergies: 08:50 No Known Allergies; ll1 - PMHx: 08:50 Arthritis; CAD; COPD; Diabetes - IDDM; High Cholesterol; Hypertension; ll1 - PSHx: 08:50 eye; knee; skin tag; Stented artery; ll1 - Immunization history:: Adult Immunizations up to date. - Infectious Disease History:: Denies. - Social history:: Smoking status: Patient reports the use of cigarette tobacco products, smokes two packs cigarettes per day. - Family history:: not pertinent. Screenin:25 [facility] ED Fall Risk Assessment (Adult) History of falling in the last 3 months, iw including since admission No falls in past 3 months (0 pts) Confusion or Disorientation No (0 pts) Intoxicated or Sedated No (0 pts) Impaired Gait No (0 pts) Mobility Assist Device Used No (0 pt) Altered Elimination No (0 pt) Score/Fall Risk Level 0 - 2 = Low Risk. Abuse screen: Denies injuries from another. Nutritional screening: No deficits noted. Tuberculosis screening: No symptoms or risk factors identified. Assessment: 09:24 General: Appears in no apparent distress. Behavior is calm, cooperative. Pain: Denies iw pain. Neuro: Level of Consciousness is awake, alert, obeys commands, Oriented to person, place, time, situation, Moves all extremities. Full function. Cardiovascular: Patient's skin is warm and dry. Respiratory: Airway is patent Respiratory effort is even, unlabored. GI: No signs and/or symptoms were reported involving the gastrointestinal system. Derm: circular area of skin removed from left forehead are, blood clot noted to wound, bleeding has stopped. Vital Signs: 08:50 Pulse 72; Resp 18; Temp 98; Pulse Ox 100% ; Weight 124.74 kg; Height 6 ft. 0 in. ; Pain ll1 0/10; 09:34 BP 113 / 77; Pulse 60; Resp 16; Pulse Ox 95% ; bp 08:50 Body Mass Index 37.30 (124.74 kg, 182.88 cm) ll1 08:50 Pain Scale: Adult ll1 Neida Coma Score: 09:31 Eye Response: spontaneous(4). Motor Response: obeys commands(6). Verbal Response: callie oriented(5). Total: 15. 09:40 Eye Response: spontaneous(4). Motor Response: obeys commands(6). Verbal Response: callie oriented(5). Total: 15. ED Course: 08:44 Patient arrived in ED. ra3 08:46 Joaquín Nayak, RN is Primary Nurse. bp 08:49 Arm band placed on Patient placed in an exam room, on a stretcher. ll1 08:52 Triage completed. ll1 09:10 Krishan Reynolds MD is Attending Physician. callie 09:29 No provider procedures requiring assistance completed. Patient did not have IV access iw during this emergency room visit. Dressings: 4X4s X 1; forehead. Administered Medications: No medications were administered Medication: 09:25 VIS not applicable for this client. iw Outcome: 09:43 Discharge ordered by . callie 10:04 Patient left the ED. iw Signatures: Krishan Reynolds MD MD cha Williams, Irene, RN RN iw Joaquín Nayak RN RN bp Lewis, Lynsay, RN RN [facility] Phyllis Berry ra3
--- NOTE | 2024-01-03 09:43 | EDPHYS ---
Physician Documentation [facility] Name: Eva Ortega Age: 63 yrs Sex: Male : 1960 Arrival Date: 01/03/2024 Time: 08:42 Bed 2 Private MD: ED Physician Krishan Reynolds HPI: 01/02 09:31 This 63 yrs old Male presents to ER via Ambulatory with complaints of head callie wound re-opened. 09:31 The patient or guardian reports injury, swelling. The complaints affect the forehead. callie Context of injury: The problem was sustained at home, resulted from skin lesion removed. Onset: The symptoms/episode began/occurred 2 day(s) ago. Associated signs and symptoms: Loss of consciousness: This patient did not experience any loss of consciousness. Severity of symptoms: At their worst the symptoms were mild, in the emergency department the symptoms have improved, mildly. The patient has experienced similar episodes in the past, a few times. Historical: - Allergies: 08:50 No Known Allergies; ll1 - PMHx: 08:50 Arthritis; CAD; COPD; Diabetes - IDDM; High Cholesterol; Hypertension; ll1 - PSHx: 08:50 eye; knee; skin tag; Stented artery; ll1 - Immunization history:: Adult Immunizations up to date. - Infectious Disease History:: Denies. - Social history:: Smoking status: Patient reports the use of cigarette tobacco products, smokes two packs cigarettes per day. - Family history:: not pertinent. ROS: 09:31 Constitutional: Negative for fever, chills, and weight loss, Eyes: Negative for injury, callie pain, redness, and discharge, ENT: Negative for injury, pain, and discharge, Neck: Negative for injury, pain, and swelling, Cardiovascular: Negative for chest pain, palpitations, and edema, Respiratory: Negative for shortness of breath, cough, wheezing, and pleuritic chest pain, Abdomen/GI: Negative for abdominal pain, nausea, vomiting, diarrhea, and constipation, Back: Negative for injury and pain, : Negative for injury, bleeding, discharge, and swelling, MS/Extremity: Negative for injury and deformity, Neuro: Negative for headache, weakness, numbness, tingling, and seizure, Psych: Negative for depression, anxiety, suicide ideation, homicidal ideation, and hallucinations, Allergy/Immunology: Negative for hives, rash, and allergies, Endocrine: Negative for neck swelling, polydipsia, polyuria, polyphagia, and marked weight changes, Hematologic/Lymphatic: Negative for swollen nodes, abnormal bleeding, and unusual bruising, 09:31 Skin: Positive for bleeding at biopsy site, Exam: :31 Constitutional: This is a well developed, well nourished patient who is awake, alert, callie and in no acute distress. Eyes: Pupils equal round and reactive to light, extra-ocular motions intact. Lids and lashes normal. Conjunctiva and sclera are non-icteric and not injected. Cornea within normal limits. Periorbital areas with no swelling, redness, or edema. ENT: Nares patent. No nasal discharge, no septal abnormalities noted. Tympanic membranes are normal and external auditory canals are clear. Oropharynx with no redness, swelling, or masses, exudates, or evidence of obstruction, uvula midline. Mucous membranes moist. Neck: Trachea midline, no thyromegaly or masses palpated, and no cervical lymphadenopathy. Supple, full range of motion without nuchal rigidity, or vertebral point tenderness. No Meningismus. Chest/axilla: Normal chest wall appearance and motion. Nontender with no deformity. No lesions are appreciated. Cardiovascular: Regular rate and rhythm with a normal S1 and S2. No gallops, murmurs, or rubs. Normal PMI, no JVD. No pulse deficits. Respiratory: Lungs have equal breath sounds bilaterally, clear to auscultation and percussion. No rales, rhonchi or wheezes noted. No increased work of breathing, no retractions or nasal flaring. Abdomen/GI: Soft, non-tender, with normal bowel sounds. No distension or tympany. No guarding or rebound. No evidence of tenderness throughout. Back: No spinal tenderness. No costovertebral tenderness. Full range of motion. Male : Normal genitalia with no discharge or lesions. MS/ Extremity: Pulses equal, no cyanosis. Neurovascular intact. Full, normal range of motion. Neuro: Awake and alert, GCS 15, oriented to person, place, time, and situation. Cranial nerves II-XII grossly intact. Motor strength 5/5 in all extremities. Sensory grossly intact. Cerebellar exam normal. Normal gait. Psych: Awake, alert, with orientation to person, place and time. Behavior, mood, and affect are within normal limits. 09:31 Head/face: Noted is bleeding on forehead site, excision. Vital Signs: 08:50 Pulse 72; Resp 18; Temp 98; Pulse Ox 100% ; Weight 124.74 kg; Height 6 ft. 0 in. ; Pain ll1 0/10; 09:34 BP 113 / 77; Pulse 60; Resp 16; Pulse Ox 95% ; bp 08:50 Body Mass Index 37.30 (124.74 kg, 182.88 cm) ll1 08:50 Pain Scale: Adult ll1 Neida Coma Score: 09:31 Eye Response: spontaneous(4). Motor Response: obeys commands(6). Verbal Response: callie oriented(5). Total: 15. 09:40 Eye Response: spontaneous(4). Motor Response: obeys commands(6). Verbal Response: callie oriented(5). Total: 15. MDM: 09:10 Patient medically screened. callie 09:40 Data reviewed: vital signs, nurses notes, lab test result(s). Consideration of callie Admission/Observation Escalation of care including admission/observation considered. I considered the following discharge prescriptions or medication management in the emergency department Medications were administered in the Emergency Department. See MAR. Test considered but Not performed: Labs: no labs. Care significantly affected by the following chronic conditions: Diabetes, Hypertension, Chronic Obstructive Pulmonary Disease, Obesity, oa. 01/02 09:31 Order name: Wound Care: wet-dry; Complete Time: 09:33 callie Administered Medications: No medications were administered Disposition Summary: 01/03/24 09:43 Discharge Ordered Notes: Location: Home callie Problem: new callie Symptoms: have improved callie Condition: Stable callie Diagnosis - Postprocedural hemorrhage of skin and subcutaneous tissue following other procedure callie Followup: callie - With: Private Physician - When: Upon discharge from the Emergency Department - Reason: Recheck today's complaints, Continuance of care, Re-evaluation by your physician Discharge Instructions: - Discharge Summary Sheet callie - Excision of Skin Lesions callie - Excision of Skin Lesions, Care After callie Forms: - Medication Reconciliation Form callie - Antibiotic Education callie - Prescription Opioid Use callie - Patient Portal Instructions callie - Leadership Thank You Letter callie Signatures: Krishan Reynolds MD MD cha Lewis, Lynsay RN RN ll1
[2024-01-03 10:11] VITALS: TEMP 98
[2024-01-03 10:13] VITALS: BP 113/77; O2SAT 95
== END 2024-01-03 10:04 | disposition home or self-care (01) ==
LOC: ER 08:42
DX: L76.22 Postprocedural hemorrhage of skin and subcutaneous tissue following other procedure (principal); F17.210 Nicotine dependence, cigarettes, uncomplicated
CPT/HCPCS: 99281